=== PATIENT | female | born 1995 | race Caucasian/White ===

== ENCOUNTER → 2017-12-22 10:39 | Outpatient (CLI) | payer OTHER, MEDICAID, SELFPAY ==
--- NOTE | 2017-12-22 10:50 | XR_ITS ---
XR knee LT 3V HISTORY: Left knee pain ITS.REASON: TIM KNEE PAIN ORDERING PHYSICIAN: JUSTINE Madrigal PATIENT AGE: 22 years COMPARISON: None FINDINGS: No fracture or dislocation. No lytic or blastic change. Normal mineralization. No significant arthritic changes evident. Slight decrease in joint space medially. This however is without hypertrophic change or osteosclerosis. This also has a similar appearance on the right side. No other significant findings IMPRESSION: Slight decrease in joint space medially of questionable clinical significance otherwise negative left knee. This could be seen with very early osteoarthritis
--- NOTE | 2017-12-22 10:53 | XR_ITS ---
XR knee RT 3V HISTORY: ITS.REASON: TIM KNEE PAIN ORDERING PHYSICIAN: JUSTINE Madrigal PATIENT AGE: 22 years COMPARISON: None FINDINGS: No fracture or dislocation. No lytic or blastic change. Normal mineralization. No significant arthritic changes evident. Slight decrease in joint space medially. This however is without hypertrophic change or osteosclerosis. This also has a similar appearance on the left side. No other significant findings IMPRESSION: Slight decrease in joint space medially of questionable clinical significance otherwise negative left knee. This could be seen with very early osteoarthritis
== END ==
PROVIDERS: PCP Family Medicine; Visit Provider Physician Assistant
DX: M25.561 Pain in right knee (principal); M25.562 Pain in left knee
CPT/HCPCS: 73562

== ENCOUNTER → 2019-06-25 07:58 | Outpatient (CLI) | payer OTHER, SELFPAY ==
[2019-06-25 08:00] LABS: Adenovirus F 40/41, stool Not Detected (NotDetected); Astrovirus Not Detected (NotDetected); Campylobacter Not Detected (NotDetected); Cryptosporidium Not Detected (NotDetected); Cyclospora Cayetanesis Not Detected (NotDetected); Entamoeba histolytica Not Detected (NotDetected); Enteroaggregative E coli Not Detected (NotDetected); Enteropathogenic E coli Not Detected (NotDetected); Enterotoxigenic E coli Not Detected (NotDetected); Giardia lamblia Not Detected (NotDetected); Norovirus Not Detected (NotDetected); Plesimonas Shigalloides, PCR Not Detected (NotDetected); Rotavirus A Not Detected (NotDetected); Salmonella, PCR Not Detected (NotDetected); Sapovirus Not Detected (NotDetected); Shiga-like toxin E coli Not Detected (NotDetected); Shigella Enterovasive E coli Not Detected (NotDetected); Vibrio Cholerae Not Detected (NotDetected); Vibrio, PCR Not Detected (NotDetected); Yersinia Entercolitica, PCR Not Detected (NotDetected)
[2019-06-25 12:39] LABS: Clostridium Difficile A/B, PCR Detected (NotDetected)
== END ==
PROVIDERS: Visit Provider Nurse Practitioner
DX: R19.7 Diarrhea, unspecified (principal); A04.72 Enterocolitis due to Clostridium difficile, not specified as recurrent
CPT/HCPCS: 87507

== ENCOUNTER 2020-02-23 19:03 | Emergency (ER) | payer OTHER, SELFPAY ==
[2020-02-23 19:13] LABS: UTC Strep Screen (Rapid) Negative (Negative)
[2020-02-23 19:31] VITALS: BP 145/97; PULSE 88; RESP 18; TEMP 36.9; O2SAT 99; BMI 16.0
--- NOTE | 2020-02-23 19:38 | HMH.EDUTC ---
[facility] [place] Disposition Clinical Impression: Fever Qualifiers: Fever type: unspecified Qualified Code(s): R50.9 - Fever, unspecified Disposition: Home, Self-Care Condition on Discharge: Good Instructions: Preventing the Spread of Coronavirus Discharge Instructions Additional Instructions: Go home and self quarantine until the results of the COVID-19. Referrals: Nando Simmons MD [Primary Care Provider] - Forms: Work/School Release Time of Disposition: 19:43 Medical Decision Making - Medical Records Medical records reviewed: No: I reviewed the patient's medical records. - Munir Inquiry Pt receiving controlled substance: No Vital Signs: 02/23/20 19:31 02/23/20 19:41 Temperature 98.5 F 98.5 F Temperature Source Oral Pulse Rate 88 Pulse Rate [Right Brachial] 88 Respiratory Rate 18 18 Blood Pressure 145/97 H Blood Pressure [Right Arm] 145/97 H Blood Pressure Mean [Right Arm] 113 Blood Pressure Source [Right Arm] Automatic Cuff Blood Pressure Position [Right Arm] Sitting 02 Sat by Pulse Oximetry 99 Oxygen Delivery Method Room Air - Lab Data Lab results reviewed: Yes: I reviewed the patient's lab results. Lab Results 02/23/20 19:07: Strep Scn Rapid Clinic Negative Orders (Tests/Meds): ORDERS Category Date Time Status SARS-CoV-2, ESTRELLA ([place]) Stat Lab 02/23/20 19:25 Received Strep Screen Confirmation Stat Micro 02/23/20 19:07 Received [facility] [place] HPI - General Stated complaint: COVID test Time Seen by Provider: 02/23/20 19:35 Mode of Arrival: Ambulatory Source of Information: Patient Limitations: No Limitations Description of Symptoms (Recalled from Triage Doc. by RN): PATIENT C/O FEVER AND SORE THROAT HEENT Symptoms (Recalled from RN notes): Yes Resp Symptoms (Recalled from RN notes): No Skin Symptoms (Recalled from RN notes): No MS Symptoms (Recalled from RN notes): No Functional Status (Recalled from RN notes): WNL - History of Present Illness Provider Complaint: She had an elevated temp when it was checked as she entered the building to start her shift. She does admit to having some mild right sided sore throat, but she has had no additional symptoms. She denies any known exposure to COVID-19. 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 - Related Data Home Medications Medication Instructions Recorded Confirmed drospirenone 3 mg-ethinyl 1 tab PO DAILY 11/28/18 02/23/20 estradiol 0.03 mg tablet Previous Rx's Medication Instructions Recorded Azithromycin [Z-Stefan 250mg Tab*] 250 mg PO UD DOSE PK #6 tab 02/24/20 Allergies Allergy/AdvReac Type Severity Reaction Status Date / Time No Known Allergies Allergy Verified 10/02/19 11:01 - Worker's Comp Is this a Worker's Comp case?: No H History - Hepatitis A Screen Drug use history?: No High risk sexual behaviors?: No History of sexually transmitted infection?: No Currently employed?: No Childcare worker?: No Do you have indoor plumbing?: Yes Do you have electricity?: Yes Attestation statement:: This patient has been screened for Hepatitis A risk factors. I have reviewed the patient's past medical history: Yes Medical History: Reports:: Cancer Comment: Osteoarthritis Other Surgeries: Yes: Hernia Repair Fractures: Yes (left ankle) - Social History Smoking Status: Never smoker Alcohol Intake: current Alcohol Intake Frequency:: holidays/special occasions only Occupational Status: employed Family Hx:: Non-contributory ROS Obtained: Yes All systems reviewed & no additional complaints - Constitutional Constitutional: Denies chills, Reports fever(s), Denies poor appetite, Denies malaise - Eyes Eyes: Denies eye discharge - ENT Ears, Nose, Mouth, and Throat: Denies dizziness, Denies otalgia, Reports sore throat - Cardiovascular Cardiovascular: Denies chest pain - Respiratory Respiratory: No chest congestion, No cough, No dyspnea, No coughing up blood, No stridor, No wheezing - Gastroin
[2020-02-23 19:41] VITALS: BP 145/97; PULSE 88; RESP 18; TEMP 36.9; O2SAT 99
[2020-02-24 19:02] LABS: UTC Influenza A Antigen Negative (Negative); UTC Influenza B Antigen Negative (Negative)
[2020-02-25 17:03] LABS: Covid-19 Nasal PCR Sendout UK Not Detected
== END 2020-02-23 19:49 | disposition home or self-care (01) ==
PROVIDERS: Emergency Provider Nurse Practitioner Family; PCP Family Medicine
DX: R50.9 Fever, unspecified (principal); J02.9 Acute pharyngitis, unspecified
CPT/HCPCS: 87804; 87880; 99202; U0003

== ENCOUNTER 2020-07-01 09:54 | Emergency (ER) | payer OTHER, SELFPAY ==
[2020-07-01 10:02] VITALS: BP 135/83; PULSE 81; RESP 21; TEMP 36.6; O2SAT 98; BMI 16.4
--- NOTE | 2020-07-01 10:20 | HMH.EDUTC ---
[facility] [place] Disposition Clinical Impression: Contact dermatitis Qualifiers: Contact dermatitis type: allergic Contact dermatitis trigger: unspecified trigger Qualified Code(s): L23.9 - Allergic contact dermatitis, unspecified cause Disposition: Home, Self-Care Condition on Discharge: Good Instructions: Contact Dermatitis, DI for Contact Dermatitis Additional Instructions: Avoid contact with the offending substance (poison quentin). Don't start the oral steroids until tomorrow. Don't put the topical steroids (triamcinolone) on your face or your groin area. Follow up with your regular doctor. GO TO THE ER FOR ANY WORSENING SYMPTOMS OR CONCERNS Prescriptions: Triamcinolone Acetonide 1 applicatio TP TIDP PRN 7 Days #1 tube PRN Reason: Itching Transmission Status: Received by [id number] Referrals: Nando Simmons MD [Primary Care Provider] - Time of Disposition: 10:23 Medical Decision Making - Medical Records Medical records reviewed: No: I reviewed the patient's medical records. - Munir Inquiry Pt receiving controlled substance: No Vital Signs: 07/01/20 10:02 07/01/20 10:23 Temperature 97.9 F 97.9 F Temperature Source Oral Pulse Rate 81 Pulse Rate [Right Brachial] 81 Respiratory Rate 21 21 Blood Pressure 135/83 Blood Pressure [Right Arm] 135/83 Blood Pressure Mean [Right Arm] 100 Blood Pressure Source [Right Arm] Automatic Cuff Blood Pressure Position [Right Arm] Sitting 02 Sat by Pulse Oximetry 98 Oxygen Delivery Method Room Air Orders (Tests/Meds): ED MEDICATIONS Discontinued Medications Generic Name Dose Route Start Last Admin Trade Name Freq PRN Reason Stop Dose Admin Dexamethasone Sodium Phosphate 8 mg 07/01/20 10:08 07/01/20 10:11 Decadron 4mg/Ml 1ml Vial IM 07/01/20 10:09 8 mg ONCE ONE Administration [facility] [place] HPI - General Stated complaint: poison quentin Time Seen by Provider: 07/01/20 10:15 Mode of Arrival: Ambulatory Source of Information: Patient Limitations: No Limitations Description of Symptoms (Recalled from Triage Doc. by RN): PATIENT C/O POSSIBLE POISON QUENTIN ALL OVER BODY X 4-5 DAYS. HEENT Symptoms (Recalled from RN notes): No Resp Symptoms (Recalled from RN notes): No Skin Symptoms (Recalled from RN notes): Yes MS Symptoms (Recalled from RN notes): No Functional Status (Recalled from RN notes): WNL - History of Present Illness Provider Complaint: She states that she has a rash on her right lower leg. She thinks that her dog got in poison quentin and then rubbed up against her leg. Her symptoms began 2 days ago and seem to be getting worse. - Related Data Home Medications Medication Instructions Recorded Confirmed drospirenone 3 mg-ethinyl 1 tab PO DAILY 11/28/18 07/01/20 estradiol 0.03 mg tablet Previous Rx's Medication Instructions Recorded Triamcinolone Acetonide 1 applicatio TP TIDP PRN 7 Days #1 07/01/20 tube Allergies Allergy/AdvReac Type Severity Reaction Status Date / Time No Known Allergies Allergy Verified 10/02/19 11:01 - Worker's Comp Is this a Worker's Comp case?: No [facility] History - Hepatitis A Screen Drug use history?: No High risk sexual behaviors?: No History of sexually transmitted infection?: No Currently employed?: No Childcare worker?: No Do you have indoor plumbing?: Yes Do you have electricity?: Yes Attestation statement:: This patient has been screened for Hepatitis A risk factors. I have reviewed the patient's past medical history: Yes Medical History: Reports:: Cancer Comment: Osteoarthritis Other Surgeries: Yes: Hernia Repair Fractures: Yes (left ankle) - Social History Smoking Status: Never smoker Alcohol Intake: never Alcohol Intake Frequency:: holidays/special occasions only Occupational Status: employed Family Hx:: Non-contributory ROS Obtained: Yes All systems reviewed & no additional complaints - Constitutional Constitutional: Denies chills, Denies fever(
[2020-07-01 10:23] VITALS: BP 135/83; PULSE 81; RESP 21; TEMP 36.6; O2SAT 98
== END 2020-07-01 10:25 | disposition home or self-care (01) ==
PROVIDERS: Emergency Provider Nurse Practitioner Family; PCP Family Medicine
DX: L23.9 Allergic contact dermatitis, unspecified cause (principal)
CPT/HCPCS: 96372; 99201

== ENCOUNTER 2020-07-18 14:55 | Emergency (ER) | payer OTHER, SELFPAY ==
[2020-07-18 15:16] VITALS: BP 128/80; PULSE 75; RESP 18; TEMP 36.7; O2SAT 98; BMI 16.4
--- NOTE | 2020-07-18 15:32 | HMH.EDUTC ---
[facility] [place] Disposition Clinical Impression: Contact dermatitis Qualifiers: Contact dermatitis type: unspecified Contact dermatitis trigger: unspecified trigger Qualified Code(s): L25.9 - Unspecified contact dermatitis, unspecified cause Disposition: Home, Self-Care Condition on Discharge: Good Instructions: DI for Contact Dermatitis Additional Instructions: Avoid contact with the offending substance (poison leanne). Don't start the oral steroids until tomorrow. Don't put the topical steroids (triamcinolone) on your face or your groin. Follow up with your regular doctor. GO TO THE ER FOR ANY WORSENING SYMPTOMS OR CONCERNS Prescriptions: methylPREDNISolone [Medrol] 4 mg PO DIRECTED 6 Days #21 tab.ds.pk Transmission Status: Received by [id number] Referrals: Nando Simmons MD [Primary Care Provider] - Time of Disposition: 15:47 Medical Decision Making - Medical Records Medical records reviewed: No: I reviewed the patient's medical records. - Munir Inquiry Pt receiving controlled substance: No Vital Signs: 07/18/20 15:16 07/18/20 15:59 Temperature 98.0 F 98.0 F Temperature Source Oral Oral Pulse Rate 75 Pulse Rate [Radial] 75 Respiratory Rate 18 18 Blood Pressure 128/80 Blood Pressure [Right Arm] 128/80 Blood Pressure Mean [Right Arm] 96 Blood Pressure Source Automatic Cuff Blood Pressure Source [Right Arm] Automatic Cuff Blood Pressure Position Sitting Blood Pressure Position [Right Arm] Sitting 02 Sat by Pulse Oximetry 98 Oxygen Delivery Method Room Air Room Air Orders (Tests/Meds): ED MEDICATIONS Discontinued Medications Generic Name Dose Route Start Last Admin Trade Name Renate PRN Reason Stop Dose Admin Methylprednisolone Sodium Succinate 60 mg 07/18/20 15:34 07/18/20 15:38 Methylprednisolone Sod Succ 125mg Vial IM 07/18/20 15:35 60 mg ONCE ONE Administration [facility] [place] HPI - General Stated complaint: posion leanne Time Seen by Provider: 07/18/20 15:32 Mode of Arrival: Ambulatory Source of Information: Patient Limitations: No Limitations Description of Symptoms (Recalled from Triage Doc. by RN): rash to face and neck HEENT Symptoms (Recalled from RN notes): No Resp Symptoms (Recalled from RN notes): No Skin Symptoms (Recalled from RN notes): Yes MS Symptoms (Recalled from RN notes): No Functional Status (Recalled from RN notes): wnl - History of Present Illness Provider Complaint: She c/o having a rash on her face and neck. This began yesterday. She has a history of being very sensitive to poison leanne. - Related Data Home Medications Medication Instructions Recorded Confirmed drospirenone 3 mg-ethinyl 1 tab PO DAILY 11/28/18 07/01/20 estradiol 0.03 mg tablet Previous Rx's Medication Instructions Recorded Triamcinolone Acetonide 1 applicatio TP TIDP PRN 7 Days #1 07/01/20 tube methylPREDNISolone [Medrol] 4 mg PO DIRECTED 6 Days #21 07/18/20 tab.ds.pk Allergies Allergy/AdvReac Type Severity Reaction Status Date / Time No Known Allergies Allergy Verified 10/02/19 11:01 - Worker's Comp Is this a Worker's Comp case?: No [facility] History - Hepatitis A Screen Drug use history?: No High risk sexual behaviors?: No History of sexually transmitted infection?: No Currently employed?: No Childcare worker?: No Do you have indoor plumbing?: Yes Do you have electricity?: Yes Attestation statement:: This patient has been screened for Hepatitis A risk factors. I have reviewed the patient's past medical history: Yes Medical History: Reports:: Cancer Comment: Osteoarthritis Other Surgeries: Yes: Hernia Repair Fractures: Yes (left ankle) - Social History Smoking Status: Never smoker Alcohol Intake: never Alcohol Intake Frequency:: holidays/special occasions only Occupational Status: employed Housing: house Family Hx:: Non-contributory ROS Obtained: Yes All systems reviewed & no additional complaints - Constit
[2020-07-18 15:59] VITALS: BP 128/80; PULSE 75; RESP 18; TEMP 36.7; O2SAT 98
== END 2020-07-18 16:00 | disposition home or self-care (01) ==
PROVIDERS: Emergency Provider Nurse Practitioner Family; PCP Family Medicine
DX: L25.9 Unspecified contact dermatitis, unspecified cause (principal)
CPT/HCPCS: 96372; 99201

== ENCOUNTER 2021-08-17 20:45 | Emergency (ER) | payer BC, OTHER, SELFPAY ==
[2021-08-17] VITALS (12 sets, daily range): BP systolic 101–135; BP diastolic 73–91; PULSE 82–107; RESP 12–22; TEMP 36.7–37.2; O2SAT 92–98; BMI 16.4; BMI 16.9
--- NOTE | 2021-08-17 20:47 | XR_ITS ---
PROCEDURE INFORMATION: Exam: XR Right Wrist Exam date and time: 08/17/2021 8:47 PM Age: 26 years old Clinical indication: Injury or trauma; Blunt trauma (contusions or hematomas); Patient HX: Patient was shielded. Exam done portable due to trauma to right wrist due to falling over a dog. ; Additional info: Fall TECHNIQUE: Imaging protocol: XR Right wrist. Views: 3 or more views. COMPARISON: No relevant prior studies available. FINDINGS: Bones/joints: Comminuted fracture through the distal radial metaphysis. The distal radius is dorsally displaced relative to the proximal radius at the fracture site. There is approximately 1 shaft width of dorsal displacement and mild overlap at the fracture. Displaced fracture of the ulna styloid is also noted. Soft tissues: Considerable soft tissue swelling at the level of the wrist. IMPRESSION: Distal radius and ulna styloid fractures.
--- NOTE | 2021-08-17 20:50 | HMH.EDUPEXT ---
ED Disposition Clinical Impression: Fracture of wrist Qualifiers: Encounter type: initial encounter Fracture type: closed Laterality: right Qualified Code(s): S62.101A - Fracture of unspecified carpal bone, right wrist, initial encounter for closed fracture Disposition: Home, Self-Care Condition on Discharge: Fair Instructions: DI for Wrist Fracture Additional Instructions: Keep the splint in place. Use your arm sling as needed. Keep your affected limb elevated. You may take ibuprofen as needed. Follow-up with an orthopedist tomorrow. Dr. Wang said that he would be able to see you in the office. Please call his office tomorrow and tell them that you have a broken wrist that was reduced in the emergency department tonapril and Dr. Wang wanted to see you on Tuesday (tomorrow). Return to the emergency department if you feel worse in any way. Prescriptions: Hydrocod/Acet 5/325 mg [[place] 5/325mg tablet] 1 tab PO Q4HP PRN #10 tablet PRN Reason: Pain Transmission Status: Sent to [id number] Referrals: Nando Simmons MD [Primary Care Provider] - Evens Wang MD [Staff Physician] - (Distal Radius/Ulna fx, post reduction) Time of Disposition: 22:52 - Critical Care Critical Care Time: No Attestation: On 08/17/21, the high probability of a clinically significant, sudden or life threatening deterioration of the following system(s) required my full and direct attention, intervention and personal management. The time I documented below is in addition to time spent performing reported procedures but includes the following listed in this critical care notation. Medical Decision Making - Medical Records Medical records reviewed: Yes: I reviewed the patient's medical records. - Munir Inquiry Pt receiving controlled substance: Yes Munir was queried for this patient: Yes Risks and benefits of using a controlled substance: were discussed with pt by me Vital Signs: 08/17/21 20:46 08/17/21 22:02 08/17/21 22:05 Temperature 98.9 F Temperature Source Oral Pulse Rate [Apical] 100 H 82 Pulse Rate [Right Radial] 107 H Respiratory Rate 22 15 15 Blood Pressure [Right Arm] 135/91 H 120/83 101/76 L Blood Pressure Mean [Right Arm] 105 95 84 Blood Pressure Source [Right Arm] Automatic Cuff Automatic Cuff Automatic Cuff Blood Pressure Position [Right Arm] Supine Sitting Sitting 02 Sat by Pulse Oximetry 98 95 97 Oxygen Delivery Method Room Air Nasal Cannula Nasal Cannula Oxygen Flow Rate (LPM) 2 2 - Lab Data Lab Results 08/17/21 20:52: Serum HCG, Qual Negative 08/17/21 21:25: SARS-CoV-2 (PCR) Not detected, Influenza A Untype (PCR) Not detected, Influenza Type B (PCR) Not detected Orders (Tests/Meds): ED MEDICATIONS Generic Name Dose Route Start Last Admin Trade Name Freq PRN Reason Stop Dose Admin Propofol 30 mg 08/17/21 22:32 Propofol 10mg/Ml 20ml Vial IV 09/16/21 22:31 NEEDED PRN Sedation Discontinued Medications Generic Name Dose Route Start Last Admin Trade Name Freq PRN Reason Stop Dose Admin Hydrocodone Bitart/Acetaminophen 1 tab 08/17/21 22:26 Apap/Hydrocodone 325mg/7.5mg Tab PO 08/17/21 22:27 ONCE ONE Hydromorphone HCl 2 mg 08/17/21 21:16 08/17/21 21:17 Hydromorphone 2mg/Ml Syringe IV 08/17/21 21:17 1 mg ONCE ONE Administration Morphine Sulfate 4 mg 08/17/21 20:50 08/17/21 20:58 Morphine 4mg/Ml Syringe IV 08/17/21 20:51 4 mg ONCE ONE Administration Ondansetron HCl 4 mg 08/17/21 20:50 08/17/21 20:59 Ondansetron 4mg/2ml Vial IV 08/17/21 20:51 4 mg ONCE ONE Administration ORDERS Category Date Time Status Wrist XR right 2 views [XR wrist RT 2V] Stat Exams 08/17/21 22:15 Taken - Radiology Data #1 Image(s): Wrist Image Reviewed: Yes I reviewed the patient's radiology results, Yes I reviewed the patient's radiology image Preliminary Findings: Abnormal (Displaced, comminuted fracture of the dis
[2021-08-17 21:32] LABS: HCG Qualitative, Serum Negative (Negative)
[2021-08-17 21:43] LABS: Coronavirus 19, PCR Not Detected (NotDetected); Influenza A, PCR Not Detected (NotDetected); Influenza B, PCR Not Detected (NotDetected)
--- NOTE | 2021-08-17 22:02 | PC.NURSE ---
Addendum entered by Magan Gabriel RN 08/17/21 23:50: 2220- Reduction complete and Xray at bedside for post-reduction imaging Original Note: 2201- Procedure consent for conscious sedation explained and signed by pt's and placed on chart. Pt placed on cardiac cath rn and 2LNC applied w/ CO2 end-tidal cannula in place. Time out performed by MD and staff. MD states Mallampati score of class A. Ambu-bag mask at bedside. 2204- 30mg propofol IVP by MD 2206- 20mg propofol IVP by 2207- 20mg propofol IVP by 2209- 20mg propofol IVP by 2242- Pt back to baseline. A&Ox4 and answering all questions appropriately. 97% on RA. Pt to be discharged with w/ instructions to follow up with in the morning. Shoulder sling in place. OTC medication as needed for pain. Ice and elevate extremity.
--- NOTE | 2021-08-17 22:15 | XR_ITS ---
PROCEDURE INFORMATION: Exam: XR Right Wrist Exam date and time: 08/17/2021 10:15 PM Age: 26 years old Clinical indication: Injury or trauma; Fall; Fracture, traumatic injury; Closed fracture; Wrist; Right; Additional info: Post-reduction TECHNIQUE: Imaging protocol: XR Right wrist. Views: 1 or 2 views. COMPARISON: CR (WRIST, WRIST PA) 08/17/2021 9:02 PM FINDINGS: Tubes, catheters and devices: Overlying splinting material obscures finer detail of bone and soft tissue. Bones/joints: Redemonstration of ulnar styloid process fracture. Compared to prior study, there is decreased posterior angulation and displacement of the distal radial fracture. Soft tissues: Hematoma around the fractures. IMPRESSION: Overlying splinting material obscures finer detail of bone and soft tissue. Within the limitations of the study, the bone fragments appear in improved position compared to prior study.
== END 2021-08-17 23:10 | disposition home or self-care (01) ==
PROVIDERS: Emergency Provider Emergency Medicine; PCP Family Medicine
DX: S52.501A Unspecified fracture of the lower end of right radius, initial encounter for closed fracture (principal); S52.611A Displaced fracture of right ulna styloid process, initial encounter for closed fracture; W01.0XXA Fall on same level from slipping, tripping and stumbling without subsequent striking against object, initial encounter; Y92.019 Unspecified place in single-family (private) house as the place of occurrence of the external cause
CPT/HCPCS: 29125; 25605; 73100; 73110; 84703; 96374; 96375; 99152; 99153; 99285; C9803; J2405; U0003; U0005

== ENCOUNTER → 2021-08-18 12:16 | Outpatient (CLI) | payer BC, OTHER, SELFPAY ==
--- NOTE | 2021-08-18 12:21 | CT_ITS ---
PROCEDURE: CT WRIST RT WO CON CLINICAL HISTORY: RT wrist fracture COMPARISON: CR XR WRIST RT MIN 3V from 08/17/2021 TECHNIQUE: Axial images obtained with sagittal and coronal reformats. All CT scans at the facility use one or more dose reduction, viz: automated exposure control, ma/kV adjustment per patient size (including targeted exams where dose is matched to indication, i.e. head), or iterative reconstruction technique. FINDINGS: There is comminuted distal radial fracture transverse in nature 1.5 cm proximal to the articular surface of the distal radius. There is dorsal displacement of the distal fracture fragment by 7 mm and dorsal angulation of the distal fracture fragment by 23 degrees. There is a small displaced fragment posteriorly displaced dorsally by approximately 4 mm. No intra-articular extension apparent. Nondisplaced fracture involves the base of the ulnar styloid process. A cast is in place. IMPRESSION: Displaced and dorsally angulated comminuted distal radial fracture as described above without intra-articular involvement with associated ulnar styloid process fracture Dictated by: Mikel Drew MD 08/18/2021 14:03 Mikel Drew MD in [place] 08/18/2021 14:03
[2021-08-18 13:24] LABS: Basophils # 0.1 K/mm3 (0-0.2); Basophils % 0.9 % (0.1-2.0); Eosinophils # 0.2 K/mm3 (0.0-0.4); Eosinophils % 2.6 % (0.1-12.0); Hematocrit 38.7 % (37.0-47.0); Hemoglobin 12.7 g/dL (12.2-16.2); Lymphocytes # 2.5 K/mm3 (0.7-4.5); Lymphocytes % 26.7 % (10-50); Mean Corpuscular HGB Conc 32.8 g/dL (31.8-35.4); Mean Corpuscular Hemoglobin 30.4 pg (27.0-31.2); Mean Corpuscular Volume 92.9 fl (81-99); Mean Platelet Volume 8.1 fl (7.4-10.4); Monocytes # 0.8 K/mm3 (0.1-1.0); Monocytes % 8.2 % (1.7-9.3); Neutrophils # 5.7 K/mm3 (1.8-7.8); Neutrophils % 61.5 % (37.0-80.0); Platelet Count 241 K/mm3 (142-424); Red Blood Count 4.16 M/mm3 (4.20-5.40); Red Cell Distribution Width 12.9 % (11.5-17.5); White Blood Count 9.3 K/mm3 (4.8-10.8)
[2021-08-18 13:53] LABS: Chloride 106 mmol/L (98-107)
[2021-08-18 13:54] LABS: Potassium 3.8 mmoL/L (3.5-5.1); Sodium 140 mmol/L (136-145)
[2021-08-18 13:56] LABS: Alanine Aminotransferase 25 U/L (12-78); Aspartate Amino Transferase 32 U/L (14-36); Blood Urea Nitrogen 10 mg/dl (7-17); Estimated Glomerular Filt Rate 119 ml/min (>60); GFR (African American) 144 ML/MIN (>60)
[2021-08-18 13:57] LABS: Albumin Level 3.6 g/dl (3.5-5.0); Albumin/Globulin Ratio 1.4 (1.1-1.8); Alkaline Phosphatase 76 U/L (38-126); Anion Gap 11.8 mEq/L (5-15); Bilirubin,Total 0.4 mg/dl (0.2-1.3); Calcium 8.6 mg/dl (8.4-10.2); Carbon Dioxide 26 mmol/L (22.0-30.0); Globulin 2.6 g/dL (1.3-3.2); Glucose 83 mg/dl (74-100); Total Protein,Serum 6.2 g/dl (6.3-8.2)
== END ==
PROVIDERS: PCP Family Medicine; Visit Provider Orthopaedic Surgery
DX: Z01.818 Encounter for other preprocedural examination (principal); M25.531 Pain in right wrist
CPT/HCPCS: 36415; 73200; 80053; 85025

== ENCOUNTER 2021-08-20 10:23 | Day surgery (SDC) | payer BC, OTHER, SELFPAY ==
[2021-08-19 10:46] VITALS: BMI 16.4
[2021-08-20 10:47] VITALS: BP 120/78; PULSE 58; RESP 18; TEMP 36.6; O2SAT 98
--- NOTE | 2021-08-20 11:13 | HMH.ANESCL ---
[facility] Anesthesia Checklist - Patient Identification Patient Identification: Arm Band - Structural Data Admitted From: Home Planned Operative Procedure/s: ORIF Consent for Planned Operative Procedure(s) Verified: Yes - NPO Status Verified Time NPO: 00:00 - Additional verifications Anesthesia Reactions: No Hx Blood Transfusions: No Blood Transfusion Reaction: No - Airway Assessment C-Spine Mobility Assessed: Yes TMJ Mobility Assessed: Yes Dentition: Good Dentition - Neurological Assessment Level of Consciousness: Awake Hx Seizures: No Numbness or tingling in extremities: Yes (Complains of numbness in operative arm.) - Anesthesia Plan Anesthesia Risk discussed: Yes Anesthesia Plan: Verified ASA Class: I Anesthesia Type: MAC w/Block [facility] History I have reviewed the patient's past medical history: Yes Medical History: Reports:: Anxiety Denies:: Cancer, Diabetes Mellitus Type 1, Diabetes Mellitus Type 2, Internal Pacemaker, MRSA, Seizures *Have you ever received a pneumonia vaccine?: No *Have you received a flu vaccine this season?: Yes Other Medical History: Reports: Arthritis. Denies: Blood Transfusion Reaction Anesthesia experience/problems:: None Other Surgeries: Yes: Hernia Repair. No: Pacemaker Amputation: No Fractures: Yes (left ankle) - *Social History Last grade of school completed: High school graduate Smoking Status: Never smoker Alcohol Intake: current Alcohol Intake Frequency:: holidays/special occasions only Substance Use Type: denies use *Occupational Status:: employed Housing: house *Travel in the last 8 weeks: None Family Hx:: Non-contributory
[2021-08-20 13:09] VITALS: TEMP 38
--- NOTE | 2021-08-20 13:37 | XR_ITS ---
PROCEDURE: XR WRIST RT 2V CLINICAL INDICATION: ORIF RIGHT WRIST IN OR COMPARISON: CR XR WRIST RT MIN 3V from 08/17/2021 FINDINGS: Fluoroscopy time: 1.02 minutes. Multiple images are submitted with the C-arm during open reduction internal fixation of the distal radial fracture with volar bone plate placed with multiple cortical screws with good alignment in the AP and lateral position on the final images. Ulnar styloid process fracture noted nondisplaced. IMPRESSION: Good alignment status post ORIF distal radial fracture Dictated by: Mikel Drew MD 08/20/2021 17:14 Mikel Drew MD in [facility] 08/20/2021 17:14
[2021-08-20 14:12] VITALS: BP 85/45; PULSE 50; RESP 16; TEMP 36.7; O2SAT 92
[2021-08-20 14:27] VITALS: BP 100/61; PULSE 56; RESP 16; O2SAT 97
[2021-08-20 14:42] VITALS: BP 93/70; PULSE 66; RESP 18; O2SAT 95
[2021-08-20 15:05] VITALS: BP 120/67; PULSE 60; RESP 16; TEMP 36.7; O2SAT 96
--- NOTE | 2021-08-20 22:56 | HMH.OPNOTE ---
Date of procedure: 08/20/21 Pre-op Diagnosis:: 1. Closed, comminuted, displaced distal radius fracture, right 2. Closed, displaced fracture ulnar styloid process, right 3. Median nerve contusion, right Post-op Diagnosis:: Same Procedure performed:: 1.Open reduction and internal fixation right distal radius with volar locking plate. 2. Exploration of the median nerve in the distal forearm, right Surgeon:: Evens Wang MD Advertising Account Executive(s):: Nicci Pugh PA-C [employer] COUNSELOR:: Natanael De La Cruz Anesthesia: MAC (Supraclavicular nerve block), regional Estimated blood loss (mL): 5 Clinical Note:: Patient is a 26-year-old dominant female who sustained a closed displaced fracture of the right distal radius when she tripped over her dog and fell at home 3 days ago. Evaluation including x-rays and CT scan of the right wrist showed a closed, comminuted and displaced extra-articular fracture of the right distal radius. There is also a displaced ulnar shaft fracture. Clinically patient had signs and symptoms of median nerve contusion with paresthesias over the radial 3 and half digits. Following a detailed discussion with the patient and her about the management options including both nonsurgical and surgical, patient elected to proceed with surgical remediation. The operative side was marked and initialed by me. Patient understood the risks, agreed to proceed with surgery, signed the consent form and no guarantees or assurances were given or implied. Please refer to my office note for full details. Operative findings:: Displaced, comminuted and unstable fracture of the right distal radius and minimally displaced ulnar styloid fracture as noted on the preoperative x-rays. Bone quality is good. Exploration of the median nerve over the distal forearm did not show any obvious nerve injury. The nerve appeared essentially normal with small amount of hematoma in the surrounding muscles. Operative note:: After appropriate workup, the patient is brought to the hospital for surgery. On the day of surgery, I met the patient in the preoperative area. A physical examination was performed. Following the injury, patient had paresthesias over the median nerve distribution. Today she reports that these have completely resolved and she had normal sensation over all the fingers. Therefore, I have told her that it is unlikely there is any significant nerve injury but I would look at the nerve in the distal forearm. However, I would not be performing a formal carpal tunnel release which, I think, is unnecessary at this stage. I have again discussed the details of the procedure, risks and benefits, alternatives and the expected outcomes. The complications discussed include but are not limited to infection, bleeding, injury to nerves, tendons and blood vessels, incisional scar (cosmesis), DVT/PE, malunion, nonunion/delayed union, loss of position, re-fracture, wrist/finger stiffness, CRPS (complex regional pain syndrome- pain, sensory and temperature changes, swelling and stiffness), painful/prominent hardware, loss of fixation/hardware failure, incomplete relief of pain, incomplete return of function, posttraumatic arthritis and likely need for further surgery in future and also the risks of anesthesia including heart attack, stroke, and . I have also explained how additional surgery may be required if there are any complications or the fracture fails to heal. We have also discussed the postoperative pain management, recovery and rehabilitation, immobilization required, the likely need for physical therapy, the possibility of stiffness, chronic pain and we've also discussed the option of nonsurgical treatment. Patient expressed a full understanding and wished to proceed with surgery as planned. The operative site/side was marked and initialed by me. Patient understood the risks, agreed to proceed with surgery and no guarantees or assurances were given or implied. Patient was bro
[2022-07-15 10:54] LABS: POC Glucose,Bedside 77 (70-110)
== END 2021-08-20 15:05 | disposition home or self-care (01) ==
LOC: OR 10:24
PROVIDERS: PCP Family Medicine; Visit Provider Orthopaedic Surgery
PROC: (CPT 25607; principal; 2021-08-20 12:00)
DX: S52.551A Other extraarticular fracture of lower end of right radius, initial encounter for closed fracture (principal); S64.11XA Injury of median nerve at wrist and hand level of right arm, initial encounter; S52.611A Displaced fracture of right ulna styloid process, initial encounter for closed fracture; W01.0XXA Fall on same level from slipping, tripping and stumbling without subsequent striking against object, initial encounter; Y92.019 Unspecified place in single-family (private) house as the place of occurrence of the external cause
CPT/HCPCS: 25607; 64721; 73100; 76000; 82962; 96374; C1713; C1769; C1776; J0670; J2405; J2704

== ENCOUNTER → 2021-09-02 11:05 | Outpatient (CLI) | payer BC, OTHER, SELFPAY ==
--- NOTE | 2021-09-02 11:13 | XR_ITS ---
PROCEDURE: XR WRIST RT MIN 3V CLINICAL INDICATION: sp ORIF RT wrist, sx 08/20/21 COMPARISON: CR XR WRIST RT 2V from 08/17/2021 CR XR WRIST RT MIN 3V from 08/17/2021 FINDINGS: Status post ORIF distal radial fracture with volar bone plate with good alignment of the fracture fragments. avulsion of the ulnar styloid is noted There is a cast now place. Other findings:None. IMPRESSION: Status post ORIF distal radial fracture with good alignment Dictated by: Mikel Drew MD 09/02/2021 18:53 Mikel Drew MD in [place] 09/02/2021 18:53
== END ==
PROVIDERS: PCP Family Medicine; Visit Provider Orthopaedic Surgery
DX: Z09 Encounter for follow-up examination after completed treatment for conditions other than malignant neoplasm (principal); S52.551D Other extraarticular fracture of lower end of right radius, subsequent encounter for closed fracture with routine healing; S52.611D Displaced fracture of right ulna styloid process, subsequent encounter for closed fracture with routine healing; G56.11 Other lesions of median nerve, right upper limb
CPT/HCPCS: 73110

== ENCOUNTER → 2021-09-16 09:49 | Outpatient (CLI) | payer BC, SELFPAY ==
--- NOTE | 2021-09-16 09:58 | XR_ITS ---
PROCEDURE: XR WRIST RT MIN 3V CLINICAL INDICATION: sp ORIF rt wrist, sx 08/20/21 COMPARISON: CR XR WRIST RT 2V from 08/17/2021 CR XR WRIST RT MIN 3V from 08/17/[address] WRIST RT WO CON from 08/18/2021 CR XR WRIST RT MIN 3V from 09/02/2021 FINDINGS: The cast has been removed. There is a volar bone plate along the distal radius with good alignment of the radial fracture fragments. Ulnar styloid process fracture once again noted unchanged. The joint spaces are well-preserved. No significant degenerative/arthritic changes. No erosive changes evident. Other findings:None. IMPRESSION: Good alignment status post ORIF distal radial fracture Dictated by: Mikel Drew MD 09/16/2021 16:51 Mikel Drew MD in [place] 09/16/2021 16:51
== END ==
PROVIDERS: PCP Family Medicine; Visit Provider Orthopaedic Surgery
DX: S52.551D Other extraarticular fracture of lower end of right radius, subsequent encounter for closed fracture with routine healing (principal); S52.611D Displaced fracture of right ulna styloid process, subsequent encounter for closed fracture with routine healing; G56.11 Other lesions of median nerve, right upper limb; Z09 Encounter for follow-up examination after completed treatment for conditions other than malignant neoplasm
CPT/HCPCS: 73110

== ENCOUNTER 2021-09-16 10:45 | Outpatient (RCR) | payer BC, SELFPAY | END 2021-09-16 11:28 | disposition home or self-care (01) | LOC: OT 10:45 | PROVIDERS: Visit Provider Orthopaedic Surgery | DX: S52.551D Other extraarticular fracture of lower end of right radius, subsequent encounter for closed fracture with routine healing (principal); S52.611D Displaced fracture of right ulna styloid process, subsequent encounter for closed fracture with routine healing; G56.11 Other lesions of median nerve, right upper limb | CPT/HCPCS: 97763 ==

== ENCOUNTER → 2021-10-22 08:40 | Outpatient (CLI) | payer BC, OTHER, SELFPAY ==
--- NOTE | 2021-10-22 08:46 | XR_ITS ---
FINAL REPORT CLINICAL HISTORY: sp ORIF rt wrist, sx 08/20/21 FINDINGS: RIGHT WRIST FINDINGS: Three views show a side plate and screws securing the distal radius. There are mild hypertrophic changes at the basilar joint. There is a well-corticated ossific density adjacent to the ulna probably due to sequela of old trauma. IMPRESSION: Postsurgical changes from ORIF. Reviewed, Interpreted and Dictated by Noel Marques MD Transcribed by Denice Vences Authenticated by Noel Marques MD on 10/22/2021 11:56:01 AM [facility]
== END ==
PROVIDERS: PCP Family Medicine; Visit Provider Orthopaedic Surgery
DX: M25.531 Pain in right wrist (principal); Z09 Encounter for follow-up examination after completed treatment for conditions other than malignant neoplasm
CPT/HCPCS: 73110

== ENCOUNTER → 2021-10-30 08:19 | Outpatient (CLI) | payer BC, SELFPAY | PROVIDERS: PCP Family Medicine; Visit Provider Nurse Practitioner | DX: Z20.822 Contact with and (suspected) exposure to COVID-19 (principal) | CPT/HCPCS: C9803; U0003; U0005 ==

== ENCOUNTER 2021-11-08 09:50 | Emergency (ER) | payer BC, OTHER, SELFPAY ==
[2021-11-08 10:37] VITALS: BP 112/93; PULSE 83; RESP 16; TEMP 36.8; O2SAT 98; BMI 16.4
[2021-11-08 11:21] LABS: UTC Influenza A Antigen Negative (Negative); UTC Influenza B Antigen Negative (Negative)
--- NOTE | 2021-11-08 11:38 | HMH.EDUTC ---
[facility] [place] Clinical Impression: Viral syndrome, Exposure to COVID-19 virus Disposition: Home, Self-Care Condition on Discharge: Good Instructions: DI for COVID-19 (Suspected or Confirmed ), Preventing the Spread of Coronavirus Discharge Instructions Additional Instructions: *Monitor Temp, Over the counter Motrin or Tylenol as directed/as needed Tylenol every 4 hours and Motrin every 6 hours (as long as your family doctor has told you that you can take it) for fever or pain. and straight to ER if unable to lower temp less than 101.0 after medication given *Warm salt water gargles may help to soothe the throat *Throat Lozenges *Warm fluids like tea with honey may help to soothe the throat *Sleep elevated *Humidifier/Vaporizer Follow up IMMEDIATELY for new or worsening symptoms or no Noticeable improvement over the next 48-72 hours. 911 for difficulty breathing or swallowing You were tested for today for COVID19 your test result should be back in the next 24-48 hours, you may check your results on the [facility] [employer] [facility] if you have trouble logging on you may call [employer] support for assistance You was given a handout with instructions for Self Quarantine and Self isolation for while you wait on test results and what to do if they are positive If you are positive the Health Dept will be contacting you also Make sure to take your Vitamins Vit. C Vit D and Zinc if you can take them Prescriptions: Brompheniramine/Pseudoephed/Dm [Bromfed Dm Cough Syrup] 5 - 10 ml PO Q46H PRN #200 ml PRN Reason: Cough Transmission Status: Pending to [id number] Referrals: Nando Simmons MD [Primary Care Provider] - As needed Forms: Work/School Release Time of Disposition: 11:43 Medical Decision Making - Munir Inquiry Pt receiving controlled substance: No Munir was queried for this patient: No Vital Signs: 11/08/21 10:37 Temperature 98.3 F Temperature Source Oral Pulse Rate [Right] 83 Respiratory Rate 16 Blood Pressure [Right Arm] 112/93 H Blood Pressure Mean [Right Arm] 99 Blood Pressure Source [Right Arm] Automatic Cuff Blood Pressure Position [Right Arm] Sitting 02 Sat by Pulse Oximetry 98 Oxygen Delivery Method Room Air - Lab Data Lab results reviewed: Yes: I reviewed the patient's lab results. Lab Results 11/08/21 10:42: Influenza Type A Ag Negative, Influenza Type B Ag Negative Orders (Tests/Meds): ORDERS Category Date Time Status Covid-19 Nasal PCR ([facility]) Routine Lab 11/08/21 10:42 Ordered Medical Decision Narrative: Denies chance of last period one week ago [facility] [place] HPI - General Stated complaint: covid symptoms Time Seen by Provider: 11/08/21 11:38 Mode of Arrival: Ambulatory Source of Information: Patient Limitations: No Limitations Description of Symptoms (Recalled from Triage Doc. by RN): Symptoms started last Tuesday fever, headache, chills and now has loss of taste and smell HEENT Symptoms (Recalled from RN notes): No Resp Symptoms (Recalled from RN notes): No Skin Symptoms (Recalled from RN notes): No MS Symptoms (Recalled from RN notes): No Functional Status (Recalled from RN notes): na - History of Present Illness Provider Complaint: Patient states that recently had COVID States that on Tuesday she started feeling bad with fever, chills, body aches and loss of taste and smell State that today she was still feeling bad so she came in to get checked - Related Data Home Medications Medication Instructions Recorded Confirmed loratadine 10 mg tablet 10 mg PO DAILY 08/18/21 10/22/21 sertraline 50 mg tablet 50 mg PO DAILY 08/18/21 10/22/21 Ibuprofen [Ibuprofen 200MG Capsule] 200 mg PO Q6HP PRN 08/19/21 10/22/21 Multivit-Minerals/Folic Acid 200 mcg PO HS 08/19/21 10/22/21 [Multivitamin Gummies] Previous Rx's Medication Instructions Recorded Brompheniramine/Pseudoephed/Dm 5 - 10 ml PO Q46H PRN #200 ml 11/08/21 [Bromfed Dm Cough Syrup]
[2021-11-08 11:44] VITALS: BP 112/93; PULSE 83; RESP 16; TEMP 36.8
== END 2021-11-08 11:54 | disposition home or self-care (01) ==
PROVIDERS: Emergency Provider Nurse Practitioner; PCP Family Medicine
DX: U07.1 COVID-19 (principal); B34.9 Viral infection, unspecified; F41.9 Anxiety disorder, unspecified
CPT/HCPCS: 87804; 99202; C9803; G0463; U0003; U0005

== ENCOUNTER → 2021-12-02 09:07 | Outpatient (CLI) | payer BC, OTHER, SELFPAY ==
--- NOTE | 2021-12-02 09:11 | XR_ITS ---
FINAL REPORT CLINICAL HISTORY: sp ORIF rt wrist F/U COMPARISON: FINDINGS: RIGHT WRIST Four views demonstrate no acute fracture or dislocation. There are postoperative changes in the distal radius with a screw plate and multiple screws. There is a chronic fracture of the ulnar styloid process. The alignment appears normal. IMPRESSION: Postsurgical changes without acute bony abnormality. Reviewed, Interpreted and Dictated by Timothy Perez III, MD Transcribed by Floridalma Coronel Authenticated by Timothy Perez III, MD on 12/02/2021 10:39:11 AM [facility]
== END ==
PROVIDERS: PCP Family Medicine; Visit Provider Orthopaedic Surgery
DX: Z09 Encounter for follow-up examination after completed treatment for conditions other than malignant neoplasm (principal)
CPT/HCPCS: 73110

== ENCOUNTER → 2022-03-03 08:23 | Outpatient (CLI) | payer BC, OTHER, SELFPAY ==
--- NOTE | 2022-03-03 08:26 | XR_ITS ---
FINAL REPORT CLINICAL HISTORY: ORIF rt wrist sx 08/20/2021 COMPARISON: December 02, 2021 FINDINGS: RIGHT WRIST Three views were obtained. There are postoperative changes from ORIF of the distal radius. Screw plate and multiple screws are present. There is a chronic fracture of the ulnar styloid process. The visualized joint spaces are normally aligned. The soft tissues are unremarkable. IMPRESSION: Postoperative changes as above. Overall appearance is stable. Reviewed, Interpreted and Dictated by Timothy Perez III, MD Transcribed by Sravanthi Rossi Authenticated by Timothy Perez III, MD on 03/03/2022 10:16:[address] [facility]
== END ==
PROVIDERS: PCP Family Medicine; Visit Provider Orthopaedic Surgery
DX: S52.501D Unspecified fracture of the lower end of right radius, subsequent encounter for closed fracture with routine healing (principal)
CPT/HCPCS: 73110

== ENCOUNTER → 2022-05-11 07:55 | Outpatient (POV) | payer BC, SELFPAY | PROVIDERS: Visit Provider Dermatology | DX: Z00.00 Encounter for general adult medical examination without abnormal findings (principal) ==

== ENCOUNTER 2022-08-18 09:07 | Emergency (ER) | payer BC, OTHER, SELFPAY ==
[2022-08-18 10:49] VITALS: BP 136/86; PULSE 63; RESP 18; TEMP 36.8; O2SAT 99; BMI 16.4
--- NOTE | 2022-08-18 10:49 | EXP.UTC ---
Discharge Plan Disposition Patient Disposition: Home, Self-Care Condition: Good Prescriptions Prescriptions: New cefdinir 300 mg capsule 300 mg PO BID Qty: 20 0RF No Action sertraline [Zoloft] 50 mg tablet 50 mg PO DAILY loratadine [Claritin] 10 mg tablet 10 mg PO DAILY omeprazole 20 mg capsule,delayed release(DR/EC) 20 mg PO DAILY multivit with min-folic acid 200 MCG tablet,chewable 200 mcg PO HS Referrals Follow up/Referrals: Nando Simmons MD [Primary Care Provider] - See instructions Activity Restrictions/Add. Instructions Additional Instructions/Restrictions: *Monitor Temp, Over the counter Motrin or Tylenol as directed/as needed Tylenol every 4 hours and Motrin every 6 hours (as long as your family doctor has told you that you can take it) for fever or pain. and straight to ER if unable to lower temp less than 101.0 after medication given *Warm salt water gargles may help to soothe the throat *Throat Lozenges? *Warm fluids like tea with honey may help to soothe the throat? *Sleep elevated *Humidifier/Vaporizer Your throat swab was sent for culture. Those results are typically sent to your primary care. Be sure to follow up in 2-3 days with your family doctor/primary care physician if no improvement so they can review those result and treat if necessary. If you don?t have a primary care doctor, I recommend you get one but in the mean time, you will have to return to a walk in clinic Follow up IMMEDIATELY for new or worsening symptoms or no Noticeable improvement over the next 48-72 hours. 911 for difficulty breathing or swallowing You were tested for today for COVID19 your test result should be back in the next 24-48 hours, you may check your results on the [facility] [facility] Clinical Impressions Clinical Impression: URI (upper respiratory infection) Qualifiers: URI type: unspecified URI Qualified Code(s): J06.9 - Acute upper respiratory infection, unspecified Stand Alone Forms Stand Alone Forms: Work/School Release Instructions Patient Instructions: Strep Throat, DI for Strep Throat Discharge ED Provider: Brandie Marte [facility] [place] General Stated complaint: Strep/flu test, Sore throat, dry cough, sinus shanell Time Seen by Provider: 08/18/22 10:50 History of Present Illness Provider Complaint: Patient states that she feels like she may have strep throat or flu States that she got sick a couple days ago with sore throat, nasal congestion and dry cough State that today her throat feels scratchy and hurts when she swallows so she came in to get tested Related Data Home Medications Medication Instructions Recorded Confirmed loratadine 10 mg tablet (Claritin) 10 mg PO DAILY ALLERGIES 08/18/21 03/03/22 sertraline 50 mg tablet (Zoloft) 50 mg PO DAILY Depression 08/18/21 03/03/22 multivitamin with minerals-folic 200 mcg PO HS Supplement 08/19/21 03/03/22 acid 200 mcg chewable tablet omeprazole 20 mg capsule,delayed 20 mg PO DAILY 12/07/21 03/03/22 release Previous Rx's Medication Instructions Recorded cefdinir 300 mg capsule 300 mg PO BID #20 caps 08/18/22 Allergies Allergy/AdvReac Type Severity Reaction Status Date / Time No Known Allergies Allergy Verified 03/03/22 08:54 PFSH PFS Social History Smoking Status: Never smoker alcohol intake: current substance use type: denies use current occupational status: employed Travel in the last 8 weeks: None housing: house caffeine: No ROS Obtained: Yes All systems reviewed & no additional complaints except as documented and Yes Systems reviewed as appropriate & no additional complaints except as documented Constitutional Constitutional: Reports system reviewed and no additional complaints, except as documented, Reports as per HPI, Reports fever(s) and Reports headache(s) ENT Ears, Nose, Mouth, and Throat: Reports system reviewed and no additional complaint
[2022-08-18 11:08] VITALS: BP 130/68; PULSE 62; RESP 18; TEMP 36.6; O2SAT 99
[2022-08-18 20:47] LABS: UTC Influenza A Antigen Negative (Negative); UTC Influenza B Antigen Negative (Negative); UTC Strep Screen (Rapid) Positive (Negative)
== END 2022-08-18 11:09 | disposition home or self-care (01) ==
PROVIDERS: Emergency Provider Nurse Practitioner; PCP Family Medicine
DX: J02.0 Streptococcal pharyngitis (principal); B95.0 Streptococcus, group A, as the cause of diseases classified elsewhere; M19.90 Unspecified osteoarthritis, unspecified site; R51.9 Headache, unspecified; F32.A Depression, unspecified; Z20.822 Contact with and (suspected) exposure to COVID-19; Z79.899 Other long term (current) drug therapy; Z82.49 Family history of ischemic heart disease and other diseases of the circulatory system; Z83.438 Family history of other disorder of lipoprotein metabolism and other lipidemia; Z80.9 Family history of malignant neoplasm, unspecified
CPT/HCPCS: 87804; 87880; 99213; C9803; G0463; U0003; U0005

== ENCOUNTER → 2022-09-06 15:24 | Outpatient (CLI) | payer BC, OTHER, SELFPAY ==
--- NOTE | 2022-09-06 15:25 | US_ITS ---
FINAL REPORT CLINICAL HISTORY: irregular periods FINDINGS: Transvaginal sonographic images of the pelvis were obtained. The uterus measures 8.3 x 4.5 x 3.8 cm. The endometrium measures 7 mm, which is within normal limits. No uterine mass is identified. The right ovary measures 4.8 cm in length and left ovary measures 3.8 cm in length. Normal blood flow seen to the ovaries. Small left ovarian follicles are present. There is a 2.2 cm right ovarian cyst. There is no evidence of free fluid. IMPRESSION: 2.2 cm right ovarian cyst. Reviewed, Interpreted and Dictated by Timothy Perez III, MD Transcribed by Donnie Persaud Authenticated and [facility]
== END ==
PROVIDERS: PCP Family Medicine; Visit Provider Obstetrics & Gynecology
DX: N92.6 Irregular menstruation, unspecified (principal)
CPT/HCPCS: 76830

== ENCOUNTER → 2022-09-06 16:38 | Outpatient (CLI) | payer BC, OTHER, SELFPAY ==
[2022-09-06 16:47] LABS: MANUAL DIFFERENTIAL MANUAL DIFFERENTIAL (MANUAL DIFF)
[2022-09-06 17:21] LABS: Chloride 100 mmol/L (98-107); Sodium 139 mmol/L (136-145)
[2022-09-06 17:22] LABS: Potassium 3.5 mmoL/L (3.5-5.1)
[2022-09-06 17:24] LABS: Alanine Aminotransferase 22 U/L (12-78); Alkaline Phosphatase 80 U/L (38-126); Aspartate Amino Transferase 31 U/L (14-36); Bilirubin,Total 0.4 mg/dl (0.2-1.3); Blood Urea Nitrogen 13 mg/dl (7-17); Estimated Glomerular Filt Rate 118 ml/min (>60); GFR (African American) 143 ML/MIN (>60)
[2022-09-06 17:25] LABS: Albumin Level 4.6 g/dl (3.5-5.0); Albumin/Globulin Ratio 1.6 (1.1-1.8); Anion Gap 13.5 mEq/L (5-15); Basophils # 0.1 K/mm3 (0-0.2); Basophils % 0.8 % (0.1-2.0); Calcium 9.5 mg/dl (8.4-10.2); Carbon Dioxide 29 mmol/L (22.0-30.0); Eosinophils # 0.2 K/mm3 (0.0-0.4); Eosinophils % 2.5 % (0.1-12.0); Globulin 2.9 g/dL (1.3-3.2); Glucose 85 mg/dl (74-100); Glucose,Fasting 85 mg/dl (74-100); Hemoglobin 13.6 g/dL (12.2-16.2); Lymphocytes # 2.8 K/mm3 (0.7-4.5); Lymphocytes % 34.6 % (10-50); Mean Corpuscular HGB Conc 32.3 g/dL (31.8-35.4); Mean Corpuscular Hemoglobin 30.5 pg (27.0-31.2); Mean Corpuscular Volume 94.5 fl (81-99); Mean Platelet Volume 7.5 fl (7.4-10.4); Monocytes # 0.5 K/mm3 (0.1-1.0); Neutrophils # 4.5 K/mm3 (1.8-7.8); Neutrophils % 56.1 % (37.0-80.0); Platelet Count 295 K/mm3 (142-424); Red Blood Count 4.44 M/mm3 (4.20-5.40); Red Cell Distribution Width 13.1 % (11.5-17.5); Total Protein,Serum 7.5 g/dl (6.3-8.2)
[2022-09-06 17:56] LABS: Thyroid Stimulating Hormone 1.23 uIU/mL (0.465-4.68)
[2022-09-06 19:26] LABS: Eosinophils % 2 % (0-3); Lymphocytes % 34 % (10-50); Monocytes % 4 % (2-9); Neutrophils % 60 % (42-76); Platelet Estimate Normal; RBC Morphology Normal; Total Cells Counted 100
[2022-09-06 20:50] LABS: Hemoglobin A1C 5.1 % (4.0-6.0)
[2022-09-08 08:15] LABS: Estradiol 29.3 pg/mL (.); FSH 2.3 mIU/mL (.); LH 1.9 mIU/mL (.); Testosterone,Total 7 ng/dL (13-71)
[2022-09-08 10:35] LABS: Insulin Level Total 10.2 uIU/mL (2.6-24.9)
[2022-09-19 21:48] LABS: Anti Mullerian Hormone (AMH) 4.07
== END ==
PROVIDERS: PCP Obstetrics & Gynecology; Visit Provider Obstetrics & Gynecology
DX: N92.6 Irregular menstruation, unspecified (principal)
CPT/HCPCS: 36415; 80053; 82397; 82670; 82947; 83001; 83002; 83036; 83525; 84403; 84443; 85007; 85014; 85018; 85048; 85049

== ENCOUNTER → 2022-10-20 10:15 | Outpatient (CLI) | payer BC, OTHER, SELFPAY ==
[2022-10-20 12:41] LABS: Adenovirus,PCR Not Detected (NotDetected); Bordetella Pertussis Not Detected (NotDetected); Chlamydophila Pneumoniae, PCR Not Detected (NotDetected); Coronavirus 19, PCR Not Detected (NotDetected); Coronavirus 229E Not Detected (NotDetected); Coronavirus NL63 Not Detected (NotDetected); Coronavirus OC43 Not Detected (NotDetected); Coronovirus HKU1,PCR Not Detected (NotDetected); Human Metapneumovirus Not Detected (NotDetected); Influenza A, PCR Not Detected (NotDetected); Influenza AH1, 2009 Not Detected (NotDetected); Influenza AH1, PCR Not Detected (NotDetected); Influenza AH3,PCR Not Detected (NotDetected); Influenza B, PCR Not Detected (NotDetected); Mycoplasma Pneumoniae, PCR Not Detected (NotDetected); Parainfluenza 1, PCR Not Detected (NotDetected); Parainfluenza 2, PCR Not Detected (NotDetected); Parainfluenza 3, PCR Not Detected (NotDetected); Parainfluenza 4, PCR Not Detected (NotDetected); Respiratory Syncytial Virus Not Detected (NotDetected); Rhinovirus/Enterovirus Not Detected (NotDetected)
== END ==
PROVIDERS: Visit Provider Nurse Practitioner Family
DX: J06.9 Acute upper respiratory infection, unspecified (principal); Z20.822 Contact with and (suspected) exposure to COVID-19; R51.9 Headache, unspecified; R50.9 Fever, unspecified; R05.9 Cough, unspecified; R11.0 Nausea
CPT/HCPCS: 87581; 87632; 87798; C9803; U0003; U0005

== ENCOUNTER → 2022-12-22 12:37 | Outpatient (CLI) | payer BC, OTHER, SELFPAY ==
[2022-12-22 13:10] LABS: Basophils # 0.1 K/mm3 (0-0.2); Basophils % 1.1 % (0.1-2.0); Eosinophils # 0.2 K/mm3 (0.0-0.4); Eosinophils % 1.9 % (0.1-12.0); Hematocrit 42.5 % (37.0-47.0); Hemoglobin 14.1 g/dL (12.2-16.2); Lymphocytes # 2.7 K/mm3 (0.7-4.5); Lymphocytes % 34.6 % (10-50); Mean Corpuscular HGB Conc 33.1 g/dL (31.8-35.4); Mean Corpuscular Hemoglobin 30.6 pg (27.0-31.2); Mean Corpuscular Volume 92.3 fl (81-99); Mean Platelet Volume 7.9 fl (7.4-10.4); Monocytes # 0.5 K/mm3 (0.1-1.0); Monocytes % 6.9 % (1.7-9.3); Neutrophils # 4.4 K/mm3 (1.8-7.8); Neutrophils % 55.5 % (37.0-80.0); Platelet Count 277 K/mm3 (142-424); Red Cell Distribution Width 12.9 % (11.5-17.5); White Blood Count 7.9 K/mm3 (4.8-10.8)
[2022-12-22 13:53] LABS: Chloride 104 mmol/L (98-107); Potassium 4.2 mmoL/L (3.5-5.1); Sodium 137 mmol/L (136-145)
[2022-12-22 13:56] LABS: Anion Gap 14.2 mEq/L (5-15); Blood Urea Nitrogen 12 mg/dl (7-17); Carbon Dioxide 23 mmol/L (22.0-30.0); Estimated Glomerular Filt Rate 118 ml/min (>60); GFR (African American) 143 ML/MIN (>60)
[2022-12-22 13:57] LABS: Calcium 8.7 mg/dl (8.4-10.2); Glucose 85 mg/dl (74-100)
== END ==
PROVIDERS: PCP Nurse Practitioner Family; Visit Provider Nurse Practitioner Family
DX: E16.2 Hypoglycemia, unspecified (principal); R55 Syncope and collapse
CPT/HCPCS: 80048; 83036; 85025

== ENCOUNTER → 2023-04-12 09:26 | Outpatient (CLI) | payer BC, OTHER, SELFPAY ==
[2023-04-12 11:06] LABS: HCG,Quantitative 33 mIU/ml (0-5.42)
[2023-04-13 10:45] LABS: Progesterone 0.5 ng/mL (.)
== END ==
PROVIDERS: PCP Physician Assistant; Visit Provider Obstetrics & Gynecology
DX: N92.6 Irregular menstruation, unspecified (principal); Z32.00 Encounter for pregnancy test, result unknown
CPT/HCPCS: 36415; 84144; 84702

== ENCOUNTER → 2023-04-14 12:03 | Outpatient (CLI) | payer BC, OTHER, SELFPAY ==
[2023-04-14 13:44] LABS: HCG,Quantitative 14 mIU/ml (0-5.42)
== END ==
PROVIDERS: PCP Physician Assistant; Visit Provider Obstetrics & Gynecology
DX: N92.6 Irregular menstruation, unspecified (principal); Z32.00 Encounter for pregnancy test, result unknown
CPT/HCPCS: 36415; 84702

== ENCOUNTER → 2023-09-22 11:15 | Outpatient (CLI) | payer BC, OTHER, SELFPAY ==
[2023-09-22 12:33] LABS: HCG,Quantitative 765 mIU/ml (0-5.42)
[2023-09-23 08:18] LABS: Progesterone 14.8 ng/mL (.)
== END ==
PROVIDERS: PCP Physician Assistant; Visit Provider Obstetrics & Gynecology
DX: N92.6 Irregular menstruation, unspecified (principal)
CPT/HCPCS: 36415; 84144; 84702

== ENCOUNTER → 2023-10-14 09:10 | Outpatient (CLI) | payer BC, OTHER, SELFPAY ==
[2023-10-14 12:02] LABS: HCG,Quantitative 27891 mIU/ml (0-5.42)
== END ==
PROVIDERS: PCP Physician Assistant; Visit Provider Obstetrics & Gynecology
DX: Z34.91 Encounter for supervision of normal pregnancy, unspecified, first trimester (principal); Z3A.11 11 weeks gestation of pregnancy
CPT/HCPCS: 84702; 87086

== ENCOUNTER 2023-10-18 09:51 | Outpatient (CLI) | payer BC, OTHER, SELFPAY ==
--- NOTE | 2023-10-18 09:54 | US_ITS ---
PROCEDURE: US OB <= 14 WEEKS FETUS CLINICAL INDICATION: for dates COMPARISON: No exams were available for comparison FINDINGS: Transvaginal sonographic images of the pelvis were obtained. From her last menstrual period she is 12weeks 3days. An intrauterine gestational sac is present but a fetus is not seen today. This correlates to a gestational age of 6weeks 2days. heart tones are not seen today. Yolk sac is not noted. The right ovary is seen and appears normal. A 1.9 cm by 2.0 6 cm x 1.3 cm follicle is seen adjacent to the right ovary. This could represent a tubal cyst. A small hyperechoic area is seen at the edge of the follicle. The left ovary is seen and appears normal. There is no fluid in the cul-de-sac. IMPRESSION: 1. Gestational sac seen within the uterine cavity but no heart rate activity is seen. A yolk sac is not present. 2. The left ovary is seen and appears normal. 3. The right ovary has a 2 cm cystic area with a small hyperechoic area within the sac. This could represent a small follicle or possibly a tubal cyst. An ectopic is not ruled out but less likely. 4. No fluid in the cul-de-sac. 5. Suggest serial beta HCGs and repeat ultrasound in 1 week. Dictated by: Juancarlos Acevedo MD 10/18/2023 13:53 Juancarlos Acevedo MD in [place] 10/18/2023 13:53
[2023-10-18 12:08] LABS: HCG,Quantitative 31668 mIU/ml (0-5.42)
== END 2023-10-18 23:59 ==
LOC: RAD 09:52
PROVIDERS: PCP Physician Assistant; Visit Provider Obstetrics & Gynecology
DX: Z34.91 Encounter for supervision of normal pregnancy, unspecified, first trimester (principal); Z3A.12 12 weeks gestation of pregnancy
CPT/HCPCS: 36415; 76801; 84702

== ENCOUNTER 2023-10-27 09:39 | Outpatient (CLI) | payer BC, OTHER, SELFPAY ==
--- NOTE | 2023-10-27 09:40 | US_ITS ---
PROCEDURE: US OB <= 14 WEEKS FETUS CLINICAL INDICATION: 1 week follow up/dates COMPARISON: No exams were available for comparison FINDINGS: Transvaginal sonographic images of the pelvis were obtained. From her last menstrual period she is 13weeks 5days. An intrauterine gestational sac is present but no pole is seen. There are some internal echoes within the gestational sac. The gestational sac correlates to a gestational age of 6weeks 6days. heart tones are not present today. A yolk sac is not seen. The right ovary is seen and appears normal. There is a follicle adjacent to the right ovary measuring 1.5 cm x 1.7 cm x 1.9 cm. The left ovary is seen and appears normal. There is no fluid in the cul-de-sac. IMPRESSION: 1. Nonviable with a gestational sac that measures 6 weeks 6 days. 2. There is no fetus seen within the gestational sac. Likely missed . 3. Both ovaries are seen and appear normal. 4. No fluid in the cul-de-sac. Dictated by: Juancarlos Acevedo MD 10/27/2023 11:47 Juancarlos Acevedo MD in [place] 10/27/2023 11:47
[2023-10-27 11:37] LABS: HCG,Quantitative 22711 mIU/ml (0-5.42)
== END 2023-10-27 23:59 ==
LOC: RAD 09:40
PROVIDERS: PCP Physician Assistant; Visit Provider Obstetrics & Gynecology
DX: Z32.01 Encounter for pregnancy test, result positive (principal)
CPT/HCPCS: 36415; 76801; 84702; 87086

== ENCOUNTER 2023-11-02 13:33 | Emergency (ER) | payer BC, OTHER, SELFPAY ==
[2023-11-02 13:34] VITALS: BP 113/68; PULSE 70; RESP 18; TEMP 36.6; O2SAT 99; BMI 16.9
--- NOTE | 2023-11-02 14:03 | HMH.EDGENADL ---
Discharge Plan Disposition Patient Disposition: Home, Self-Care Chief Complaint: Vaginal Bleeding Prescriptions Prescriptions: No Action sertraline [Zoloft] 50 mg tablet 50 mg PO DAILY loratadine [Claritin] 10 mg tablet 10 mg PO DAILY omeprazole 20 mg capsule,delayed release(DR/EC) 20 mg PO DAILY Classic 28 mg iron- 800 mcg tablet 1 tab PO DAILY progesterone micronized [Prometrium] 200 mg capsule 200 mg vaginal QHS 30 Days Qty: 30 2RF Referrals Follow up/Referrals: Jade Arce PA [Primary Care Provider] - See instructions Activity Restrictions/Add. Instructions Additional Instructions/Restrictions: At this time it was felt you are safe to be discharged home. If new or worsening symptoms please do not hesitate to return the emergency department. Please follow-up with Dr. Courtney tomorrow or Tuesday at your earliest convenience. For pain please take Tylenol and ibuprofen every 6 hours as needed. Is important that you follow-up with Dr. Courtney to continue to trend your blood work. Clinical Impressions Clinical Impression: Miscarriage Discharge ED Provider: Sarabjit Hall General Adult HPI General Chief complaint: Vaginal Bleeding Stated complaint: admonial pain Time Seen by Provider: 11/02/23 13:45 History of Present Illness HPI narrative: Patient is a 28-year-old female currently undergoing expectant management for nonviable who presents emergency department for evaluation of vaginal bleeding. History is obtained by patient and per chart review. In recent clinic note on 10-27-2023 ultrasound demonstrated nonviable with a gestational sac that measures 6 weeks and 6 days. After shared decision-making patient elected to undergo expectant management at that time. Patient has had vaginal bleeding that has become severe over the last 24 hours using a pad approximately every 3 to 5 minutes since this morning. Patient has some crampy lower abdominal pain, not severe and has taken some ibuprofen. She contacted her OB who directed her here for continued evaluation. Related Data Home Medications Medication Instructions Recorded Confirmed loratadine 10 mg tablet (Claritin) 10 mg PO DAILY ALLERGIES 08/18/21 10/27/23 sertraline 50 mg tablet (Zoloft) 50 mg PO DAILY Depression 08/18/21 10/27/23 omeprazole 20 mg capsule,delayed 20 mg PO DAILY 12/07/21 10/27/23 release vits no.126-ferrous fum 1 tab PO DAILY 10/14/23 10/27/23 28 mg iron-folic acid 800 mcg tablet (Classic ) Previous Rx's Medication Instructions Recorded progesterone micronized 200 mg 200 mg vaginal QHS 30 days #30 caps 10/19/23 capsule (Prometrium) Allergies Allergy/AdvReac Type Severity Reaction Status Date / Time No Known Allergies Allergy Verified 10/27/23 15:07 [facility] Disclaimer: The information contained in this section may have been updated after the patient was seen, as this information can be updated by other users. 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 housing: house marital status: number of children: 0 pets and animals: Yes caffeine: No ROS Obtained: Yes Systems reviewed as appropriate & no additional complaints except as documented Physical Exam General General appearance: alert and in no apparent distress Head Head exam: atraumatic and normocephalic Eye Eye exam: Present PERRL and EOMI ENT ENT exam: Present mucous membranes moist Neck Neck exam: Present normal inspection Chest Chest inspection: Present normal inspection and symmetric chest wall rise Respiratory Respiratory exam: Absent respiratory distress Cardiovascular Cardiovascular exam: Present regular rate and normal rhythm Abdominal Exam Abdominal exam: Present soft; Absent tenderness Extremities Exam Extremities exam: Present normal inspection Neurological Exam Neurological exam: Present alert Psychiatric Psychiatric exam: Present normal affect Skin Skin exam: Present warm and dry Medical Decision Making Munir Inquiry Pt receiving controlled substance: No Vital Signs: 11/02/23 13:34 Temperature 97.9 F Temperature Source Oral Pulse Rate [Left Radial] 70 Respiratory Rate 18 Blood Pressure [Right Arm] 113/68 Blood Pressure Mean [Right Arm] 83 02 Sat by Pulse Oximetry 99 Oxygen Delivery Method Room Air Lab Data Lab Results 11/02/23 13:47: WBC 8.1, RBC 4.24, Hgb 13.5, Hct 39.9, MCV 94.0, MCH 31.7 H, MCHC 33.8, RDW 13.1, Plt Count 192, MPV 7.3 L, Neut % (Auto) 66.0, Lymph % (Auto) 25.0, [place] % (Auto) 6.1, Eos % (Auto) 2.1, Baso % (Auto) 0.8, Neut # (Auto) 5.3, Lymph # (Auto) 2.0, [place] # (Auto) 0.5, Eos # (Auto) 0.2, Baso # (Auto) 0.1, Sodium 137, Potassium 3.8, Chloride 103, Carbon Dioxide 28, Anion Gap 9.8, BUN 14, Creatinine 0.70, Estimated Creat Clear 91, Estimated GFR 98, Est GFR ( Amer) 119, Glucose 81, Calcium 8.7, Total Bilirubin 0.8, AST 40 H, ALT 37, Alkaline Phosphatase 55, Total Protein 7.2, Albumin 4.2, Globulin 3.0, Albumin/Globulin Ratio 1.4, HCG, Quant [id number] H 11/02/23 14:12: Urine Color Yellow, Urine Appearance Sl cloudy, Urine pH 6.0, Ur Specific [place] 1.015, Urine Protein Trace, Urine Glucose (UA) Negative, Urine Ketones Negative, Urine Blood 3+, Urine Nitrate Negative, Urine Bilirubin Negative, Urine Urobilinogen 0.2, Ur Leukocyte Esterase Trace, Urine RBC Tntc, Urine WBC Occasional, Ur Squamous Epith Cells Occasional, Urine Bacteria None 11/02/23 14:25: Blood Type O Positive 11/02/23 13:47 11/02/23 13:47 Orders (Tests/Meds): ORDERS Category Date Time Status Type and Screen Stat BBK 11/02/23 14:25 Results CBC w/Auto Diff [Complete Blood Count Auto Diff] Stat Lab 11/02/23 13:47 Completed CMP [Comprehensive Metabolic Panel] Stat Lab 11/02/23 13:47 Completed HCG,Quantitative Stat Lab 11/02/23 13:47 Completed UA [Urinalysis and Microscopic] Stat Lab 11/02/23 14:12 Completed Medical Decision Narrative: In summary patient is a 28-year-old female with past medical history described above who presents emergency department for evaluation of vaginal bleeding. Patient is hemodynamically stable upon arrival, no peritonitis on abdominal exam, heart rate 95. Based off of history and current physical status I suspect patient is having a spontaneous . Differential includes other causes of abnormal uterine bleeding. Workup will be conducted with hematologic labs, quantitative hCG. Patient undergo physical exam the case will be discussed with OB on-call. Workup reviewed by me, hematologic labs are nonactionable. Patient has downtrending hCG from prior, urinalysis interpreted by me and not consistent with infection. Blood type is O+ therefore RhoGAM not indicated. Speculum exam conducted with curling machine operator at bedside, patient has no active hemorrhaging from her introitus, had significant discomfort on exam and given no significant hemorrhaging examination of the cervix and posterior vaginal vault will be deferred. Patient has no tachycardia to suggest clinically significant hemorrhage. The case was discussed with Dr. Courtney who agrees that patient is appropriate for expedited outpatient management at this time patient will follow-up in clinic tomorrow or Tuesday at her convenience. Patient was given return precautions. Critical Care Critical Care Time Critical Care Time: No
[2023-11-02 14:12] LABS: Basophils # 0.1 K/mm3 (0-0.2); Basophils % 0.8 % (0.1-2.0); Eosinophils # 0.2 K/mm3 (0.0-0.4); Eosinophils % 2.1 % (0.1-12.0); Hematocrit 39.9 % (37.0-47.0); Hemoglobin 13.5 g/dL (12.2-16.2); Mean Corpuscular HGB Conc 33.8 g/dL (31.8-35.4); Mean Corpuscular Hemoglobin 31.7 pg (27.0-31.2); Mean Platelet Volume 7.3 fl (7.4-10.4); Monocytes # 0.5 K/mm3 (0.1-1.0); Monocytes % 6.1 % (1.7-9.3); Neutrophils # 5.3 K/mm3 (1.8-7.8); Platelet Count 192 K/mm3 (142-424); Red Blood Count 4.24 M/mm3 (4.20-5.40); Red Cell Distribution Width 13.1 % (11.5-17.5); White Blood Count 8.1 K/mm3 (4.8-10.8)
[2023-11-02 14:13] LABS: Chloride 103 mmol/L (98-107)
[2023-11-02 14:14] LABS: Potassium 3.8 mmoL/L (3.5-5.1); Sodium 137 mmol/L (136-145)
[2023-11-02 14:16] LABS: Alanine Aminotransferase 37 U/L (12-78); Alkaline Phosphatase 55 U/L (38-126); Anion Gap 9.8 mEq/L (5-15); Aspartate Amino Transferase 40 U/L (14-36); Bilirubin,Total 0.8 mg/dl (0.2-1.3); Blood Urea Nitrogen 14 mg/dl (7-17); Carbon Dioxide 28 mmol/L (22.0-30.0); Creatinine Clearance Estimated 91 mL/min (50-200); Estimated Glomerular Filt Rate 98 ml/min (>60); GFR (African American) 119 ML/MIN (>60)
[2023-11-02 14:16] LABS: Microscopic, Urine URINE MICROSCOPIC (MICROSCOPIC)
[2023-11-02 14:17] LABS: Albumin Level 4.2 g/dl (3.5-5.0); Albumin/Globulin Ratio 1.4 (1.1-1.8); Calcium 8.7 mg/dl (8.4-10.2); Glucose 81 mg/dl (74-100); Total Protein,Serum 7.2 g/dl (6.3-8.2)
[2023-11-02 14:28] LABS: Appearance,Urine SL CLOUDY (Clear); Bilirubin,Urine Negative (Negative); Blood, Urine 3+ (Negative); Color,Urine YELLOW (Yellow); Glucose,Urine (UA) Negative (Negative); Ketones,Urine Negative (Negative); Leukocyte Esterase,Urine TRACE (Negative); Nitrate,Urine Negative (Negative); Protein,Urine TRACE (Negative); Specific Gravity, Urine 1.015 (1.005-1.030); Urobilinogen,Urine 0.2 EU/dl (0.2)
[2023-11-02 14:34] LABS: HCG,Quantitative 10046 mIU/ml (0-5.42)
[2023-11-02 14:48] LABS: RBC,Urine TNTC #/hpf (0-3); Squamous Epithelial Cell,Urine Occasional #/hpf (0-5); WBC,Urine Occasional #/hpf (0-3)
--- NOTE | 2023-11-02 14:53 | PC.NURSE ---
called Dr Sherwin Hall and [facility] is speaking with her at this time
[2023-11-02 15:34] VITALS: BP 104/68; PULSE 75; RESP 16; TEMP 36.7
== END 2023-11-02 15:38 | disposition home or self-care (01) ==
PROVIDERS: Emergency Provider Emergency Medicine; PCP Physician Assistant
DX: O03.9 Complete or unspecified spontaneous abortion without complication (principal); R10.30 Lower abdominal pain, unspecified; N96 Recurrent pregnancy loss
CPT/HCPCS: 36415; 80053; 81001; 84702; 85025; 86850; 99285

== ENCOUNTER 2023-11-11 10:00 | Outpatient (CLI) | payer BC, OTHER, SELFPAY ==
[2023-11-11 11:44] LABS: HCG,Quantitative 2320 mIU/ml (0-5.42)
== END 2023-11-11 23:59 ==
LOC: LAB 10:01
PROVIDERS: PCP Physician Assistant; Visit Provider Obstetrics & Gynecology
DX: O03.9 Complete or unspecified spontaneous abortion without complication (principal)
CPT/HCPCS: 36415; 84702

== ENCOUNTER 2023-11-12 11:39 | Observation (INO) | payer BC, OTHER, SELFPAY ==
[2023-11-12] VITALS (12 sets, daily range): BP systolic 93–118; BP diastolic 46–81; PULSE 63–92; RESP 12–19; TEMP 36.3–36.8; O2SAT 99–100; BMI 16.9
--- NOTE | 2023-11-12 11:30 | PC.NURSE ---
1100- Dr. campbell called with orders to direct admit pt for a D&C, Orders given for a CBC, Type & Crossmatch 2 units of PRBs to hold, Beta Quant HCg level. 1 Liter of LR IV Bolus. Call surgery team once Pt arrives
[2023-11-12 12:07] LABS: POC Glucose,Bedside 91 (70-110)
--- NOTE | 2023-11-12 12:17 | EXP.HP ---
History of Present Illness *Admission Date: 11/12/23 *Reason for visit:: heavy bleeding, spontaneous *History of present illness: Mrs Celeste Costa is a 28 yo . On Tuesday morning, 11/01/23, she got out of the shower and started bleeding. She passed some large clots in the toilet and bleeding and cramping resolved. She felt good throughout the day on Tuesday. She woke up Tuesday at 0300 in a puddle of blood. She states she couldn't leave her bathroom from [phone] because she was soaking a pad every 3-5 minutes. She admits she never experienced lightheadedness/dizziness, shortness of breath or chest pain. She went to the ED 11/02/23. Bleeding had started to slow when she got to the ED. Vital signs stable. Hgb 13.5, Beta hcg quant 10,046 from 22,711. Bleeding persisted over the past week and a half. She admits to having to change her pad about twice per day. She was feeling tired but otherwise okay. However, this morning she woke up and passed a large clot and then began bleeding heavy again. She is soaking through an adult diaper in about 20 minutes. She is feeling lightheaded and dizzy now. No chest pain or shortness breath. Beta hcg quant 11/11/23 was 2,320 down from 10,046.. [facility] Disclaimer: The information contained in this section may have been updated after the patient was seen, as this information can be updated by other users. 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 housing: house marital status: number of children: 0 pets and animals: Yes caffeine: No Review of Systems Review of Systems Review of systems:: pertinent systems reviewed and negative unless documented below Constitutional Constitutional: Reports fatigue and Reports lethargy ENT Ears, Nose, Mouth, and Throat: Reports vertigo *Genitourinary Genitourinary: Reports abnormal vaginal bleeding and Reports pelvic pain (cramping) *Neurologic Neurologic: Reports vertigo and Reports other (lightheaded) Endocrine Endocrine: Reports fatigue Meds Home Medications and Allergies Home Medications Medication Instructions Recorded Confirmed Type sertraline 50 mg tablet (Zoloft) 50 mg PO DAILY Depression 08/18/21 10/27/23 History omeprazole 20 mg capsule,delayed 20 mg PO DAILY 12/07/21 10/27/23 History release vits no.126-ferrous fum 1 tab PO DAILY 10/14/23 10/27/23 History 28 mg iron-folic acid 800 mcg tablet (Classic ) loratadine 10 mg tablet (Claritin) 10 mg PO DAILY PRN ALLERGIES 11/03/23 11/03/23 History New Prescriptions to Start Prescriptions: Allergies Allergy/AdvReac Type Severity Reaction Status Date / Time No Known Allergies Allergy Verified 11/03/23 10:26 Exam Data for Last 24 hours Vital signs and Labs for Last 24 Hours: Laboratory Results - last 24 hr 11/12/23 11:41: POC Glucose 91 11/12/23 11:57: Crossmatch (AHG) See Detail I & O for Last 24 hours: Intake & Output 11/09/23 11/10/23 11/11/23 11/12/23 23:59 23:59 23:59 23:59 Weight 108 lb Constitutional Constitutional: no acute distress and cooperative *Routine HEENT Exam Head: Present normocephalic and atraumatic Eye: Absent conjunctivae pink ENT: Present mucous membranes moist *Routine Neck Exam Neck: Present full ROM *Routine Respiratory Exam Respiratory: Present CTA bilaterally and normal respiratory effort *Routine Cardiovascular Exam Cardiovascular: Present RRR *Routine Abdominal Exam Abdominal: Present soft; Absent tenderness or distended *Routine Rectal Exam Rectal:: deferred *Routine Genitalia Exam Genitalia:: deferred *Routine Extremities Exam Extremities: Present full ROM; Absent edema or calf tenderness *Routine Neurological Exam Neurological: Present alert, moving all extremities and normal speech Routine Psychiatric Exam Psychiatric: Present normal affect and cooperative Assessment and Plan *Assessment and plan (1) Incomplete : Status: Acute Category: Medical Code(s): O03.4 - Incomplete spontaneous without complication (2) Hemorrhage: Status: Acute Category: Medical Code(s): R58 - Hemorrhage, not elsewhere classified (3) History of recurrent miscarriages: Problem Comment: x 2 Status: Acute Category: Medical Code(s): N96 - Recurrent loss (4) Rh(D) positive: Status: Acute Category: Medical Code(s): Z67.90 - Unspecified blood type, Rh positive Plan Admit to L&D for hemorrhage with incomoplete spontaneous To OR for suction D&C Doxycycline 200 mg PO prior to surgery Discussed risks, benefits, alternatives, expectations and possible complications of surgery. All questions addressed and answered. She voiced understanding of risks and possible complications. Consent form signed ABO RH: O positive
[2023-11-12 12:28] LABS: Basophils # 0.1 K/mm3 (0-0.2); Basophils % 0.6 % (0.1-2.0); Eosinophils # 0.2 K/mm3 (0.0-0.4); Eosinophils % 2.5 % (0.1-12.0); Hematocrit 40.6 % (37.0-47.0); Hemoglobin 13.3 g/dL (12.2-16.2); Lymphocytes # 2.7 K/mm3 (0.7-4.5); Lymphocytes % 30.6 % (10-50); Mean Corpuscular HGB Conc 32.8 g/dL (31.8-35.4); Mean Corpuscular Hemoglobin 30.9 pg (27.0-31.2); Mean Corpuscular Volume 94.1 fl (81-99); Mean Platelet Volume 7.5 fl (7.4-10.4); Monocytes # 0.5 K/mm3 (0.1-1.0); Neutrophils # 5.3 K/mm3 (1.8-7.8); Neutrophils % 60.1 % (37.0-80.0); Platelet Count 276 K/mm3 (142-424); Red Blood Count 4.32 M/mm3 (4.20-5.40); Red Cell Distribution Width 12.9 % (11.5-17.5); White Blood Count 8.8 K/mm3 (4.8-10.8)
[2023-11-12] MEDS: LACTATED RINGERS 1000ML 1,000 ML 999 ML IV (12:30)
[2023-11-12 12:38] LABS: HCG,Quantitative 1868 mIU/ml (0-5.42)
[2023-11-12] MEDS: DOXYCYCLINE HYCL 100 MG TABLET 200 MG PO (12:38)
--- NOTE | 2023-11-12 13:36 | P.PNANES_ITS ---
[facility] Disclaimer: The information contained in this section may have been updated after the patient was seen, as this information can be updated by other users. 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 housing: house marital status: number of children: 0 pets and animals: Yes caffeine: No [facility] Anesthesia Checklist Patient Identification Patient Identification: Verbal (Name & ) Structural Data Admitted From: Inpatient Planned Operative Procedure/s: d/c Consent for Planned Operative Procedure(s) Verified: Yes Additional verifications Anesthesia Reactions: No Hx Blood Transfusions: No Blood Transfusion Reaction: No Airway Assessment Mallampati Score:: Class II C-Spine Mobility Assessed: Yes TMJ Mobility Assessed: Yes Dentition: Good Dentition Neurological Assessment Level of Consciousness: Awake, Alert and Appropriate Anesthesia Plan Anesthesia Risk discussed: Yes Anesthesia Plan: Verified ASA Class: I Anesthesia Type: General
--- NOTE | 2023-11-12 13:38 | P.OP_ITS ---
Date of procedure: 11/12/23 Pre-op Diagnosis:: 1. Incomplete spontaneous 2. Hemorrhage 3. ABO RH: O positive Post-op Diagnosis:: 1. Incomplete spontaneous 2. Hemorrhage 3. ABO RH: O positive Procedure performed:: Suction D&C Surgeon:: Monica Courtney DO Racing Mechanic(s):: N/a VISUAL MERCHANDISING COORDINATOR:: Jamil Grajeda Anesthesia: GETA Estimated blood loss (mL): 100 Clinical Note:: Mrs Celeste Costa is a 28 yo . On Tuesday morning, 11/01/23, she got out of the shower and started bleeding. She passed some large clots in the toilet and bleeding and cramping resolved. She felt good throughout the day on Tuesday. She woke up Tuesday at 0300 in a puddle of blood. She states she couldn't leave her bathroom from [phone] because she was soaking a pad every 3-5 minutes. She admits she never experienced lightheadedness/dizziness, shortness of breath or chest pain. She went to the ED 11/02/23. Bleeding had started to slow when she got to the ED. Vital signs stable. Hgb 13.5, Beta hcg quant 10,046 from 22,711. Bleeding persisted over the past week and a half. She admits to having to change her pad about twice per day. She was feeling tired but otherwise okay. However, this morning she woke up and passed a large clot and then began bleeding heavy again. She is soaking through an adult diaper in about 20 minutes. She is feeling lightheaded and dizzy now. No chest pain or shortness breath. Beta hcg quant 11/11/23 was 2,320 down from 10,046. Operative findings:: 1. Uterus midposition, approximately 6 week size, normal shape. No adnexal greg s palpated 2. Products of conception protruding out of external cervical os Operative note:: Risks, benefits and alternatives were discussed with the patient. Risks include but are not limited to bleeding, infection, uterine perforation and VTE. Patient voiced understanding and agreed to proceed. She received Doxycycline 200 mg PO preoperatively. She was wheeled back to the operating room and placed under general anesthesia without difficulty. She was placed in dorsal lithotomy position and prepped and draped in the normal sterile fashion. A bimanual exam was performed. A weighted Auvard was placed in the vaginal vault. Ringed forcep was placed on anterior lip of the cervix. Uterus sounded to 8. Cervix was dilated with products of conception protruding through external os. A 7 mm curved [place] suction curettage was advanced into the uterine cavity without difficulty and was used to suction contents of the uterus. Following removal of the products of conception, a medium sized sharp curette was advanced into the uterine cavity and was used to scrape the uterine palmer until a gritty texture was noted. At this time, the suction curette was advanced one more time to suction any remaining products of conception and blood. Instruments were removed from the vagina. Hemostasis was noted. Patient was awaken from anesthesia without difficulty. Products of conception will be sent to pathology. She was transported to recovery room in stable condition. Patient will be discharged home when awake and ambulating. She was also given instructions to follow-up in the office in 2 weeks. Condition: stable Disposition: same day Specimens:: 1. Products of conception Complications:: None
--- NOTE | 2023-11-12 13:38 | EXP.ANES.I ---
[facility] Anesthesia Record Part I Anesthesia Record I Intake, IV Amount: 1,200 Hydration: Adequate Estimated blood loss (mL): 100 Urine output (mL): 0 Blood Pressure: 118/60 SaO2: 99 Pulse Rate: 92 Airway Patency: Patent Respiratory Rate: 12 Temperature: 97.4 F Patient is:: Awake and Stable Stable to PACU at:: 13:30
--- NOTE | 2023-11-12 13:48 | P.DS_ITS ---
General Admission date:: 11/12/23 Discharge date: 11/12/23 HPI HPI HPI: Mrs Celeste Costa is a 28 yo . On 11/01/23, she got out of the shower and started bleeding. She passed some large clots in the toilet and bleeding and cramping resolved. She felt good throughout the day on Tuesday. She woke up Tuesday at 0300 in a puddle of blood. She states she couldn't leave her bathroom from [phone] because she was soaking a pad every 3-5 minutes. She admits she never experienced lightheadedness/dizziness, shortness of breath or chest pain. She went to the ED 11/02/23. B leeding had started to slow when she got to the ED. Vital signs stable. Hgb 13.5, Beta hcg quant 10,046 from 22,711. Bleeding persisted over the past week and a half. She admits to having to change her pad about twice per day. She was feeling tired but otherwise okay. However, this morning she woke up and passed a large clot and then began bleeding heavy again. She is soaking through an adult diaper in about 20 minutes. She is feeling lightheaded and dizzy now. No chest pain or shortness breath. Beta hcg quant 11/11/23 was 2,320 down from 10,046. Hospital Course Hospital Course Hospital Course: Mrs Celeste Costa is a 28 yo . On 11/01/23, she got out of the shower and started bleeding. She passed some large clots in the toilet and bleeding and cramping resolved. She felt good throughout the day on Tuesday. She woke up Tuesday morning at 0300 in a puddle of blood. She states she couldn't leave her bathroom from [phone] because she was soaking a pad every 3-5 minutes. She admits she never experienced lightheadedness/dizziness, shortness of breath or chest pain. She went to the ED 11/02/23. Bleeding had started to slow when she got to the ED. Vital signs stable. Hgb 13.5, Beta hcg quant 10,046 from 22,711. Bleeding persisted over the past week and a half. She admits to having to change her pad about twice per day. She was feeling tired but otherwise okay. However, this morning she woke up and passed a large clot and then began bleeding heavy again. She is soaking through an adult diaper in about 20 minutes. She is feeling lightheaded and dizzy now. No chest pain or shortness breath. Beta hcg quant 11/11/23 was 2,320 down from 10,046. She underwent suction D&C on 11/12/23. She was given Venofer 200 mg IV x 1 dose. She did well postoperatively and was discharged home on POD # 0. She was given instructions to follow-up in the office in 2 weeks or sooner if needed. Exam Data for Last 24 hours Vital signs and Labs for Last 24 Hours: Temp Pulse Resp BP 97.4 F L 92 H 12 118/60 11/12/23 13:40 11/12/23 13:40 11/12/23 13:40 11/12/23 13:40 Laboratory Results - last 24 hr 11/12/23 11:41: POC Glucose 91 11/12/23 11:57: WBC 8.8, RBC 4.32, Hgb 13.3, Hct 40.6, MCV 94.1, MCH 30.9, MCHC 32.8, RDW 12.9, Plt Count 276, MPV 7.5, Neut % (Auto) 60.1, Lymph % (Auto) 30.6, [place] % (Auto) 6.0, Eos % (Auto) 2.5, Baso % (Auto) 0.6, Neut # (Auto) 5.3, Lymph # (Auto) 2.7, [place] # (Auto) 0.5, Eos # (Auto) 0.2, Baso # (Auto) 0.1, HCG, Quant 1868 H, Crossmatch (AHG) See Detail I & O for Last 24 hours: Intake & Output 11/09/23 11/10/23 11/11/23 11/12/23 23:59 23:59 23:59 23:59 Intake Total 1200 / 1200 Balance 1200 / 1200 Weight 108 lb Constitutional Constitutional: no acute distress and cooperative *Routine HEENT Exam Head: Present normocephalic and atraumatic Eye: Absent conjunctivae pink ENT: Present mucous membranes moist *Routine Neck Exam Neck: Present full ROM *Routine Respiratory Exam Respiratory: Present CTA bilaterally and normal respiratory effort *Routine Cardiovascular Exam Cardiovascular: Present RRR *Routine Abdominal Exam Abdominal: Present soft; Absent tenderness or distended *Routine Rectal Exam Patient deferred: visual exam *Routine Exam Patient deferred: external exam *Routine Extremities Exam Extremities: Present full ROM; Absent edema or calf tenderness *Routine Neurological Exam Neurological: Present alert, moving all extremities and normal speech Routine Psychiatric Exam Psychiatric: Present normal affect and cooperative Results Data Completed and Pending Labs on day of discharge: Labs from last 24 hours 11/12/23 11/12/23 11:57 11:41 WBC 8.8 RBC 4.32 Hgb 13.3 Hct 40.6 MCV 94.1 MCH 30.9 MCHC 32.8 RDW 12.9 Plt Count 276 MPV 7.5 Neut % (Auto) 60.1 Lymph % (Auto) 30.6 [place] % (Auto) 6.0 Eos % (Auto) 2.5 Baso % (Auto) 0.6 Neut # (Auto) 5.3 Lymph # (Auto) 2.7 [place] # (Auto) 0.5 Eos # (Auto) 0.2 Baso # (Auto) 0.1 POC Glucose 91 HCG, Quant 1868 H Blood Type Pending Antibody Screen Pending Crossmatch ([facility]) See Detail DS: Diagnosis Discharge Diagnosis (1) Incomplete : Status: Acute Code(s): O03.4 - Incomplete spontaneous without complication (2) Hemorrhage: Status: Acute Code(s): R58 - Hemorrhage, not elsewhere classified (3) History of recurrent miscarriages: Status: Acute Code(s): N96 - Recurrent loss Problem details: x 2 (4) Rh(D) positive: Status: Acute Code(s): Z67.90 - Unspecified blood type, Rh positive Meds Home Medications and Allergies Home Medications Medication Instructions Recorded Confirmed Type sertraline 50 mg tablet (Zoloft) 50 mg PO DAILY Depression 08/18/21 10/27/23 History omeprazole 20 mg capsule,delayed 20 mg PO DAILY 12/07/21 10/27/23 History release vits no.126-ferrous fum 1 tab PO DAILY 10/14/23 10/27/23 History 28 mg iron-folic acid 800 mcg tablet (Classic ) loratadine 10 mg tablet (Claritin) 10 mg PO DAILY PRN ALLERGIES 11/03/23 11/03/23 History New Prescriptions to Start Prescriptions: Allergies Allergy/AdvReac Type Severity Reaction Status Date / Time No Known Allergies Allergy Verified 11/03/23 10:26 Discharge Plan Disposition Patient Disposition: Home, Self-Care Condition: Good Follow up Plan Follow up with: Monica Courtney DO [Staff Physician] - 2 weeks Prescriptions/Medication Reconciliation: Continued sertraline [Zoloft] 50 mg tablet 50 mg PO DAILY loratadine [Claritin] 10 mg tablet 10 mg PO DAILY PRN (Reason: ALLERGIES) omeprazole 20 mg capsule,delayed release(DR/EC) 20 mg PO DAILY Classic 28 mg iron- 800 mcg tablet 1 tab PO DAILY Problem Reconciliation Problems Reviewed?: Yes Patient Discharge Instructions DIET: continue same diet and regular diet Additional Instructions: Discharge: 1. Take 800 mg Ibuprofen every 8 hours as needed for pain. You can also take 500-1000 mg of Tylenol in between doses, every 6-8 hours. 2. Nothing in the vagina for 2 weeks - no intercourse, douching or tampons. No tub baths/hot tubs or swimming pools 3. Reasons to return to L&D or call On-Call doctor - fever (greater than 100.4) - heavy vaginal bleeding (soaking through 1 pad in less than 2 hours) - vaginal discharge (malodorous and/or purulent) Monica Courtney DO [facility] [phone] Providers Primary Care Provider: Jade Arce Admit Provider: Monica Courtney Attending Provider: Monica Courtney
[2023-11-12] MEDS: IRON SUCROSE COMPLEX 200 MG in 0.9 % SODIUM CHLORIDE 100 ML 220 MG IV (14:19)
--- NOTE | 2023-11-12 14:42 | PC.NURSE ---
1250- Nando Grajeda CRNA at he bedside speaking with pt 1255- Pt off the unit per bed and surgery staff to the OR
--- NOTE | 2023-11-12 14:55 | PC.NURSE ---
Pt assisted x1 to the bathroom, Pt was able to void a large amount, small amounts of blood noted in the toilet. Pt tolerated well, Pt given pad and mesh panties, and assisted back to bed
--- NOTE | 2023-11-12 15:16 | PC.NURSE ---
Pt is resting comfortably in the bed eating lunch tray at this time, Pt voices no pain or needs at this time
--- NOTE | 2023-11-12 16:10 | PC.NURSE ---
IV removed and D/C teaching provided
--- NOTE | 2023-11-14 10:34 | P.PNANES_ITS ---
[facility] Anesthesia Record Part II Anesthesia Record Part II Discharge Time: 14:00 Destination: located within [facility] PACU nurse assessment reviewed?: Yes Patient Condition:: Good Anesthesia Complications:: None Swallowing reflex intact?: Yes Airway Patency: Patent Cyanosis?: No Blood Pressure: 90/73 SaO2: 95 Respiratory Rate: 12 Pulse Rate: 66 Temperature: 97.5 F Mental Status: Alert & Oriented Pain level:: 0 Nausea and/or vomitting:: None Intake, IV Amount: 1,000 Hydration: Adequate
[2023-11-14 10:36] VITALS: BP 90/73; PULSE 66; RESP 12; TEMP 36.4; O2SAT 95
== END 2023-11-12 16:20 | disposition home or self-care (01) ==
LOC: OBOUT 11:40 → OB 11:40
PROVIDERS: Admitting Provider Obstetrics & Gynecology; PCP Physician Assistant; Visit Provider Obstetrics & Gynecology
PROC: (CPT 58120; principal; 2023-11-12 12:30)
DX: O03.4 Incomplete spontaneous abortion without complication (principal)
CPT/HCPCS: 59812; 82962; 84702; 85025; 86850; G0378; J1756; J2405

== ENCOUNTER → 2023-11-27 11:35 | Outpatient (CLI) | payer BC, OTHER, SELFPAY ==
[2023-11-27 13:01] LABS: Thyroid Stimulating Hormone 0.88 uIU/mL (0.465-4.68)
[2023-11-28 13:09] LABS: Anti-Cardio Antibody IgM <9 MPL U/mL (0-12); Anti-Cardiolipin Antibody IgG <9 GPL U/mL (0-14); Anticardiolipin Ab,IgA,Qn <9 APL U/mL (0-11)
[2023-11-29 12:40] LABS: von Willebrand Factor (vWF) Ag 62 % (50-200)
[2023-11-29 19:20] LABS: Beta-2 Glycoprotein I Ab, IgG <9 (0-20)
[2023-11-30 06:42] LABS: Beta-2 Glycoprotein I Ab, IgM <9 (0-32)
== END ==
LOC: LAB 11:37 → OBOUT 11:39
PROVIDERS: PCP Physician Assistant; Visit Provider Obstetrics & Gynecology
DX: N96 Recurrent pregnancy loss (principal)
CPT/HCPCS: 81241; 84443; 85245; 86146; 86147

== ENCOUNTER 2024-01-02 16:34 | Outpatient (CLI) | payer BC, OTHER, SELFPAY ==
[2024-01-02 17:52] LABS: HCG,Quantitative 15 mIU/ml (0-5.42)
[2024-01-03 08:56] LABS: Progesterone 13.4 ng/mL (.)
== END 2024-01-02 23:59 ==
LOC: LAB 16:34
PROVIDERS: PCP Physician Assistant; Visit Provider Obstetrics & Gynecology
DX: N92.6 Irregular menstruation, unspecified (principal)
CPT/HCPCS: 84144; 84702

== ENCOUNTER 2024-01-04 14:10 | Outpatient (CLI) | payer BC, OTHER, SELFPAY ==
[2024-01-04 15:21] LABS: HCG,Quantitative 7 mIU/ml (0-5.42)
== END 2024-01-04 23:59 ==
LOC: LAB 14:10
PROVIDERS: PCP Physician Assistant; Visit Provider Obstetrics & Gynecology
DX: N96 Recurrent pregnancy loss (principal)
CPT/HCPCS: 36415; 84702

== ENCOUNTER 2024-02-03 15:40 | Outpatient (CLI) | payer BC, OTHER, SELFPAY ==
[2024-02-03 16:59] LABS: HCG,Quantitative 117 mIU/ml (0-5.42)
== END 2024-02-03 23:59 ==
PROVIDERS: PCP Physician Assistant; Visit Provider Obstetrics & Gynecology Reproductive Endocrinology
DX: O02.81 Inappropriate change in quantitative human chorionic gonadotropin (hCG) in early pregnancy (principal)
CPT/HCPCS: 36415; 84702

== ENCOUNTER 2024-02-06 10:00 | Outpatient (CLI) | payer BC, OTHER, SELFPAY ==
[2024-02-06 11:13] LABS: HCG,Quantitative 446 mIU/ml (0-5.42)
[2024-02-06 11:28] LABS: Thyroid Stimulating Hormone 1.09 uIU/mL (0.465-4.68)
[2024-02-06 13:15] LABS: Free T4 (Free Thyroxine) 0.92 ng/dl (0.78-2.19)
[2024-02-07 08:33] LABS: Progesterone 18.3 ng/mL (.)
== END 2024-02-06 23:59 | disposition home or self-care (01) ==
LOC: LAB 10:00
PROVIDERS: PCP Physician Assistant; Visit Provider Obstetrics & Gynecology Reproductive Endocrinology
DX: Z32.01 Encounter for pregnancy test, result positive (principal)
CPT/HCPCS: 36415; 84144; 84439; 84443; 84702

== ENCOUNTER 2024-02-08 08:31 | Outpatient (CLI) | payer BC, OTHER, SELFPAY ==
[2024-02-08 10:54] LABS: HCG,Quantitative 1247 mIU/ml (0-5.42)
== END 2024-02-08 23:59 | disposition home or self-care (01) ==
LOC: LAB 08:31
PROVIDERS: PCP Physician Assistant; Visit Provider Obstetrics & Gynecology Reproductive Endocrinology
DX: Z32.01 Encounter for pregnancy test, result positive (principal)
CPT/HCPCS: 36415; 84702

== ENCOUNTER 2024-03-29 09:58 | Outpatient (CLI) | payer BC, OTHER, SELFPAY ==
[2024-03-29 10:34] LABS: Basophils # 0.1 K/mm3 (0-0.2); Basophils % 0.8 % (0.1-2.0); Eosinophils # 0.1 K/mm3 (0.0-0.4); Eosinophils % 1.1 % (0.1-12.0); Hematocrit 40.6 % (37.0-47.0); Hemoglobin 13.3 g/dL (12.2-16.2); Lymphocytes # 1.9 K/mm3 (0.7-4.5); Lymphocytes % 20.6 % (10-50); Mean Corpuscular HGB Conc 32.7 g/dL (31.8-35.4); Mean Corpuscular Hemoglobin 29.7 pg (27.0-31.2); Mean Corpuscular Volume 91.1 fl (81-99); Mean Platelet Volume 7.7 fl (7.4-10.4); Monocytes # 0.5 K/mm3 (0.1-1.0); Monocytes % 5.7 % (1.7-9.3); Neutrophils # 6.7 K/mm3 (1.8-7.8); Neutrophils % 71.8 % (37.0-80.0); Platelet Count 270 K/mm3 (142-424); Red Blood Count 4.46 M/mm3 (4.20-5.40); Red Cell Distribution Width 15.6 % (11.5-17.5); White Blood Count 9.3 K/mm3 (4.8-10.8)
[2024-03-29 11:28] LABS: HIV (1&2) Antibody Rapid NON REACTIVE
[2024-03-30 06:14] LABS: HCV Ab Non Reactive (Non Reactive); Hepatitis B Surface Antigen Negative (Negative); Rubella Antibodies, IgG 1.21 index (Immune >0.99)
[2024-03-30 11:29] LABS: Rapid Plasma Reagin Ab Titer Non Reactive titer (NonRea<1:1)
== END 2024-03-29 23:59 | disposition home or self-care (01) ==
LOC: LAB 10:00
PROVIDERS: PCP Physician Assistant; Visit Provider Obstetrics & Gynecology
DX: Z34.92 Encounter for supervision of normal pregnancy, unspecified, second trimester (principal); Z3A.12 12 weeks gestation of pregnancy; N96 Recurrent pregnancy loss
CPT/HCPCS: 36415; 85025; 86593; 86762; 86850; 87340

== ENCOUNTER 2024-04-04 16:28 | Outpatient (CLI) | payer BC, OTHER, SELFPAY ==
[2024-04-07 06:47] LABS: Neisseria gonorrhoeae, NAA Negative (Negative)
== END 2024-04-04 23:59 | disposition home or self-care (01) ==
LOC: LAB.DROPOF 16:28
PROVIDERS: PCP Obstetrics & Gynecology; Visit Provider Obstetrics & Gynecology
DX: Z34.92 Encounter for supervision of normal pregnancy, unspecified, second trimester (principal); Z3A.12 12 weeks gestation of pregnancy
CPT/HCPCS: 87086; 87491; 87591

== ENCOUNTER 2024-05-24 07:23 | Outpatient (CLI) | payer BC, OTHER, SELFPAY ==
--- NOTE | 2024-05-24 07:23 | US_ITS ---
PROCEDURE: US OB /MATERNAL DETAIL CLINICAL INDICATION: 20 week anatomy scan COMPARISON: US US OB <= 14 WEEKS FETUS from 10/27/2023 FINDINGS: Transabdominal sonographic images of the pelvis were obtained. From her established due date she is 19 weeks 6 days.. Single viable intrauterine gestation. Breech position. Placenta: Anteriorplacenta grade 1. There are multiple placental lakes. There is an average amount of fluid. The cervix appears satisfactory. Closed and measuring 4.1 cm TV in length. Complete survey performed and was unremarkable on the submitted images as in PACS. No discrete anomalies identified on survey imaging by technologist. Active fetus. Three-vessel cord with satisfactory umbilical cord insertion. 4- chamber heart noted. Situs, aortic arch, LVOT, RVOT, three-vessel view appear normal. Survey of brain & ventricles Unremarkable. Cerebellum, thalamus, choroid plexus, cisterna magna appear normal. Face and neck survey unremarkable. Profile, nasion, lips and nose appeared normal. Diaphragm and chest views unremarkable. Abdomen: Both kidneys noted and unremarkable. There is bilateral mild renal pelvis dilation with left measuring 3.4mm. Stomach and bladder noted and satisfactory. Spine: Survey of the spine satisfactory with no anomalies identified nor imaged. Cervical, thoracic, lower spine appear normal. Both arms and legs noted. Amniotic Fluid: Adequate. MVP 4.32 cm. Measurements: Average ultrasound age 19weeks 5days. Estimated due date by ultrasound age 1210/13/2024. Estimated weight 297g BPD = 20weeks 0 days HC = 19weeks 2days AC = 19weeks 6days FL = 19weeks 3days Growth Percentile= 28 Heart Rate = 143bpm Cerebellum = 19weeks 0 days Humerus = 20weeks 2days HC/AC is 1.14 FL/BPD is 0.66 FL/AC is 0.21 IMPRESSION: 1. Viable fetus in the breech presentation with an anterior placenta grade 1. There are multiple placental lakes. 2. The fluid is within normal limits with an MVP 4.32 cm. 3. Anatomical scan appears normal. 4. There is mild bilateral renal pelvis dilation with the left side measuring 3.4 mm. 5. Suggest follow-up ultrasound at 28 weeks to look at the renal pelvis and placental lakes. Dictated by: Juancarlos Acevedo MD 05/24/2024 17:16 Juancarlos Acevedo MD in [facility] 05/24/2024 17:16
== END 2024-05-24 23:59 | disposition home or self-care (01) ==
LOC: RAD 07:23
PROVIDERS: PCP Physician Assistant; Visit Provider Obstetrics & Gynecology
DX: Z36.89 Encounter for other specified antenatal screening (principal); Z3A.19 19 weeks gestation of pregnancy
CPT/HCPCS: 76811

== ENCOUNTER 2024-07-13 08:08 | Outpatient (CLI) | payer BC, OTHER, SELFPAY ==
[2024-07-13 08:28] LABS: Basophils # 0.1 K/mm3 (0-0.2); Basophils % 0.6 % (0.1-2.0); Eosinophils # 0.1 K/mm3 (0.0-0.4); Eosinophils % 1.5 % (0.1-12.0); Hematocrit 37.2 % (37.0-47.0); Hemoglobin 12.2 g/dL (12.2-16.2); Lymphocytes # 1.7 K/mm3 (0.7-4.5); Lymphocytes % 17.3 % (10-50); Mean Corpuscular HGB Conc 32.8 g/dL (31.8-35.4); Mean Corpuscular Hemoglobin 31.8 pg (27.0-31.2); Mean Corpuscular Volume 96.9 fl (81-99); Mean Platelet Volume 8.4 fl (7.4-10.4); Monocytes # 0.7 K/mm3 (0.1-1.0); Monocytes % 7.1 % (1.7-9.3); Neutrophils # 7.1 K/mm3 (1.8-7.8); Neutrophils % 73.6 % (37.0-80.0); Platelet Count 286 K/mm3 (142-424); Red Blood Count 3.84 M/mm3 (4.20-5.40); Red Cell Distribution Width 13.4 % (11.5-17.5); White Blood Count 9.6 K/mm3 (4.8-10.8)
[2024-07-13 08:41] LABS: Glucose,Fasting 96 mg/dl (74-100)
[2024-07-13 09:54] LABS: Glucose 1 Hour 102 mg/dL (74-100)
[2024-07-14 10:11] LABS: Rapid Plasma Reagin Ab Titer Non Reactive titer (NonRea<1:1)
== END 2024-07-13 23:59 | disposition home or self-care (01) ==
LOC: LAB 08:09
PROVIDERS: PCP Physician Assistant; Visit Provider Obstetrics & Gynecology
DX: Z34.90 Encounter for supervision of normal pregnancy, unspecified, unspecified trimester (principal)
CPT/HCPCS: 36415; 82951; 85025; 86593

== ENCOUNTER 2024-07-20 07:57 | Outpatient (CLI) | payer BC, OTHER, SELFPAY ==
--- NOTE | 2024-07-20 07:57 | US_ITS ---
PROCEDURE: US OB FOLLOW UP CLINICAL INDICATION: Lt. renal pelvis dilation COMPARISON: Ultrasound 05/24/2024 FINDINGS: Transabdominal sonographic images of the pelvis were obtained. The following parameters are obtained: From her established due date she is 28weeks 0 days Viable fetus in the cephalic presentation with an anterior placenta grade 1. There is a placental espinal still present measuring 1.9 cm. The cervix measures 4.0 cm heart rate: 133bpm bpm. weight 1095 grams, 2 lb 7 oz. BPD: 27weeks 6days, 32 percentile HC: 27weeks 4days, 11 percentile AC: 27weeks 5days, 32 percentile FL: 27weeks 3days, 19 percentile HC/AC: 1.09 FL/BPD: 0.74 FL/AC: 0.22 Growth percentile: 23 Amniotic fluid index: 11.39cm, MVP 4.24 cm. No obvious anomalies evident. profile seen, stomach, bladder, kidneys, three-vessel cord, four chamber heart appear normal. There is minimal non concerning bilateral renal pelvis dilation measuring 2.7 mm and 3.0 mm. IMPRESSION: 1. Viable fetus in the cephalic presentation with an anterior placenta grade 1. 2. There continues to be a placental espinal measuring 1.9 cm. 3. The fluid is within normal limits with an amniotic fluid index of 11.39 cm, MVP 4.24 cm. 4. Anatomical scan appears normal. 5. There is minimal, non concerning bilateral renal pelvis dilation measuring 2.7 mm and 3.0 mm. 6. There has been good interval growth with the fetus currently 23rd percentile. Dictated by: Juancarlos Acevedo MD 07/21/2024 06:53 Juancarlos Acevedo MD in [facility] 07/21/2024 06:53
== END 2024-07-20 23:59 | disposition home or self-care (01) ==
LOC: RAD 07:57
PROVIDERS: PCP Physician Assistant; Visit Provider Obstetrics & Gynecology
DX: O99.891 Other specified diseases and conditions complicating pregnancy (principal); N28.89 Other specified disorders of kidney and ureter; Z3A.28 28 weeks gestation of pregnancy
CPT/HCPCS: 76816

== ENCOUNTER 2024-08-17 07:55 | Outpatient (CLI) | payer BC, OTHER, SELFPAY ==
--- NOTE | 2024-08-17 07:56 | US_ITS ---
PROCEDURE: US OB BIOPHYSICAL PROFILE CLINICAL INDICATION: SGA COMPARISON: US US OB /MATERNAL DETAIL from 05/24/2024 US US OB FOLLOW UP from 07/20/2024 FINDINGS: Transabdominal sonographic images of the uterus were obtained. From her established due date she is 32weeks 0 days. The following parameters are obtained: Viable Fetus in the cephalic presentation with an anterior placenta grade 2. A placental [place] is seen in the inferior placenta. Average ultrasound age is 31weeks 6days Estimated weight 1,768g The cervix measures 3.94 cm. Measurements: heart Rate = 142bpm BPD = 32weeks 0 days, 39 percentile HC = 32weeks 4days, 24 percentile AC = 31weeks 4days, 32 percentile FL = 31weeks 0 days, 14 percentile HC/AC is 1.07 FL/BPD is 0.75 FL/AC is 0.22 23 percentile Amniotic fluid index: 12.83cm, MVP 3.55 cm Qualitative AFV:2 Breathing movements: 2 Gross Body Movements: 2 Tone: 2 Biophysical profile score: 8 Doppler evaluation of the umbilical artery: SD ratio: 2.66-2.72 Resistive index: 0.63 No obvious anomalies evident.Kidneys, profile, stomach, bladder, four-chamber heart, three-vessel cord appear normal. There appears to be a small ventricular septal defect within the heart. There is mild bilateral renal pelvis dilation measuring 4.1 mm and 3.5 mm. IMPRESSION: 1. Viable fetus in the cephalic presentation with an anterior placenta grade 2. A placental [place] is noted. 2. The fluid is within normal limits with amniotic fluid index 12.83 cm, MVP 3.55 cm. 3. Biophysical profile is 8/8 with good breathing movement and movement seen. 4. SD ratio is normal 2.66-2.72. 5. There has been good interval growth with the fetus currently 23rd percentile. 6. There continues to be mild bilateral renal pelvis dilation. 7. A VENTRICULOSEPTAL DEFECT IS SEEN AND SUGGEST A MATERNAL MEDICINE CONSULT. 8. The rest of the limited anatomical scan appears normal. 9. Dr. Courtney was notified of the VSD. Dictated by: Juancarlos Acevedo MD 08/17/2024 09:41 Juancarlos Acevedo MD in [facility] 08/17/2024 09:41
== END 2024-08-17 23:59 | disposition home or self-care (01) ==
LOC: RAD 07:56
PROVIDERS: PCP Physician Assistant; Visit Provider Obstetrics & Gynecology
DX: Z3A.32 32 weeks gestation of pregnancy; Z67.90 Unspecified blood type, Rh positive; N96 Recurrent pregnancy loss; O36.5930 Maternal care for other known or suspected poor fetal growth, third trimester, not applicable or unspecified
CPT/HCPCS: 76816; 76819; 76820

== ENCOUNTER 2024-09-11 15:21 | Outpatient (CLI) | payer BC, OTHER, SELFPAY ==
[2024-09-11 15:39] VITALS: BP 134/82; PULSE 90; RESP 18; TEMP 36.9; O2SAT 100; BMI 20.5
[2024-09-11 15:53] VITALS: BMI 20.5
[2024-09-11 16:06] LABS: Microscopic, Urine URINE MICROSCOPIC (MICROSCOPIC)
[2024-09-11 16:09] LABS: Appearance,Urine CLEAR (Clear); Bilirubin,Urine Negative (Negative); Blood, Urine Negative (Negative); Color,Urine YELLOW (Yellow); Glucose,Urine (UA) 2+ (Negative); Ketones,Urine TRACE (Negative); Leukocyte Esterase,Urine 1+ (Negative); Nitrate,Urine Negative (Negative); PH,Urine 6.5 (5.0-8.5); Protein,Urine Negative (Negative); Specific Gravity, Urine 1.025 (1.005-1.030); Urobilinogen,Urine 0.2 EU/dl (0.2)
[2024-09-11 16:20] LABS: Bacteria,Urine 4+ /lpf; Benzodiazepines Screen,Urine Negative ng/ml (<200); Squamous Epithelial Cell,Urine 20-50 #/hpf (0-5); WBC,Urine 50-100 #/hpf (0-3)
[2024-09-11 16:21] LABS: Amphetamine/Metha Screen,Urine Negative ng/ml (<1000); Barbiturates Screen,Urine Negative ng/ml (<200)
[2024-09-11 16:22] LABS: Cannabinoid Screen,Urine Negative ng/ml (<50)
[2024-09-11 16:23] LABS: Cocaine Screen,Urine Negative ng/ml (<300); Methadone Screen,Urine Negative ng/ml (<300)
[2024-09-11 16:24] LABS: Opiate Screen,Urine Negative ng/ml (<300)
[2024-09-11 16:25] LABS: Phencyclidine Screen,Urine Negative ng/ml (<25)
[2024-09-11] MEDS: LACTATED RINGERS 1000ML 1,000 ML 999 ML IV (17:15)
[2024-09-11] MEDS: TERBUTALINE SULFATE 1MG/ML VIAL 0.25 MG SUBCUT (18:16)
== END 2024-09-11 19:32 | disposition home or self-care (01) ==
LOC: OBOUT 15:23 → OB 15:23
PROVIDERS: Obstetrics & Gynecology; PCP Physician Assistant; Visit Provider Obstetrics & Gynecology
DX: O60.03 Preterm labor without delivery, third trimester (principal); Z3A.35 35 weeks gestation of pregnancy
CPT/HCPCS: 80307; 81001; 87086; G0463; J3105; J7120

== ENCOUNTER 2024-09-19 14:58 | Outpatient (CLI) | payer BC, OTHER, SELFPAY ==
[2024-09-19 15:10] VITALS: BMI 20.8
[2024-09-19 15:27] LABS: Microscopic, Urine URINE MICROSCOPIC (MICROSCOPIC)
[2024-09-19 15:30] LABS: Appearance,Urine CLEAR (Clear); Bilirubin,Urine Negative (Negative); Blood, Urine Negative (Negative); Color,Urine YELLOW (Yellow); Glucose,Urine (UA) Negative (Negative); Ketones,Urine Negative (Negative); Leukocyte Esterase,Urine TRACE (Negative); Nitrate,Urine Negative (Negative); Protein,Urine Negative (Negative); Urobilinogen,Urine 0.2 EU/dl (0.2)
[2024-09-19 15:40] LABS: Fetal Membrane Rupture (Rapid) Negative (Negative)
[2024-09-19 15:41] LABS: Barbiturates Screen,Urine Negative ng/ml (<200)
[2024-09-19 15:42] LABS: Amphetamine/Metha Screen,Urine Negative ng/ml (<1000); Benzodiazepines Screen,Urine Negative ng/ml (<200)
[2024-09-19 15:43] LABS: Cannabinoid Screen,Urine Negative ng/ml (<50)
[2024-09-19 15:44] LABS: Cocaine Screen,Urine Negative ng/ml (<300); Methadone Screen,Urine Negative ng/ml (<300)
[2024-09-19 15:45] VITALS: BP 121/72; PULSE 92; RESP 18; TEMP 36.6; O2SAT 98; BMI 20.8
[2024-09-19 15:45] LABS: Opiate Screen,Urine Negative ng/ml (<300)
[2024-09-19 15:46] LABS: Phencyclidine Screen,Urine Negative ng/ml (<25)
[2024-09-19 15:50] LABS: Bacteria,Urine 2+ /lpf; Squamous Epithelial Cell,Urine 20-50 #/hpf (0-5); Yeast,Urine 1+ /lpf
== END 2024-09-19 16:11 | disposition home or self-care (01) ==
LOC: OBOUT 15:00 → OB 15:00
PROVIDERS: PCP Physician Assistant; Visit Provider Obstetrics & Gynecology
DX: O42.913 Preterm premature rupture of membranes, unspecified as to length of time between rupture and onset of labor, third trimester (principal); Z3A.36 36 weeks gestation of pregnancy
CPT/HCPCS: 80307; 81001; 84112; 87086; G0463

== ENCOUNTER 2024-09-21 16:00 | Outpatient (CLI) | payer BC, OTHER, SELFPAY | END 2024-09-21 23:59 | disposition home or self-care (01) | LOC: LAB.DROPOF 16:00 | PROVIDERS: PCP Obstetrics & Gynecology; Visit Provider Obstetrics & Gynecology | DX: Z36.89 Encounter for other specified antenatal screening (principal) | CPT/HCPCS: 86403 ==

== ENCOUNTER 2024-09-26 11:06 | Outpatient (CLI) | payer BC, OTHER, SELFPAY ==
[2024-09-26 11:14] VITALS: BMI 21.2
[2024-09-26 11:26] LABS: Microscopic, Urine URINE MICROSCOPIC (MICROSCOPIC)
[2024-09-26 11:30] LABS: Appearance,Urine CLEAR (Clear); Bilirubin,Urine Negative (Negative); Blood, Urine Negative (Negative); Color,Urine YELLOW (Yellow); Glucose,Urine (UA) Negative (Negative); Ketones,Urine Negative (Negative); Leukocyte Esterase,Urine Negative (Negative); Nitrate,Urine Negative (Negative); PH,Urine 5.5 (5.0-8.5); Protein,Urine Negative (Negative); Specific Gravity, Urine 1.015 (1.005-1.030); Urobilinogen,Urine 0.2 EU/dl (0.2)
[2024-09-26 11:43] LABS: Barbiturates Screen,Urine Negative ng/ml (<200)
[2024-09-26 11:44] LABS: Amphetamine/Metha Screen,Urine Negative ng/ml (<1000); Benzodiazepines Screen,Urine Negative ng/ml (<200)
[2024-09-26 11:45] LABS: Methadone Screen,Urine Negative ng/ml (<300)
[2024-09-26 11:46] VITALS: BP 135/81; PULSE 80; RESP 17; TEMP 36.7; O2SAT 100; BMI 21.2
[2024-09-26 11:46] LABS: Cannabinoid Screen,Urine Negative ng/ml (<50); Cocaine Screen,Urine Negative ng/ml (<300)
[2024-09-26 11:47] LABS: Opiate Screen,Urine Negative ng/ml (<300)
[2024-09-26 11:48] LABS: Phencyclidine Screen,Urine Negative ng/ml (<25)
[2024-09-26 11:49] LABS: Bacteria,Urine 1+ /lpf; WBC,Urine Occasional #/hpf (0-3)
== END 2024-09-26 12:05 | disposition home or self-care (01) ==
LOC: OBOUT 11:08 → OB 11:09
PROVIDERS: PCP Physician Assistant; Visit Provider Obstetrics & Gynecology
DX: O60.03 Preterm labor without delivery, third trimester (principal); Z3A.37 37 weeks gestation of pregnancy
CPT/HCPCS: 80307; 81001; G0463

== ENCOUNTER 2024-10-02 18:22 | Outpatient (CLI) | payer BC, OTHER, SELFPAY ==
[2024-10-02 18:30] VITALS: BP 144/79; PULSE 86; RESP 16; TEMP 36.6; BMI 21.2; BMI 21.4
--- NOTE | 2024-10-02 18:32 | US_ITS ---
PROCEDURE INFORMATION: Exam: US , Limited Exam date and time: 10/02/2024 6:49 PM Clinical indication: Other: Dec movement; ; Additional info: Decreased fm TECHNIQUE: Imaging protocol: Real-time ultrasound of the maternal uterus with image documentation. Exam focused on the clinical indication. COMPARISON: No relevant prior studies available. FINDINGS: Gestation: Single intrauterine gestation. heart rate: 136 bpm presentation and position: Cephalic. Placenta: Anterior location. No retroplacental hemorrhage. Amniotic fluid index: 9.31 cm. ANATOMY: heart four-chamber view, heart size and position: Known small ventricular septal defect. kidneys: Mildly increased dilation of the left renal pelvis measuring 0.49 cm (previously 0.41 cm). IMPRESSION: 1. Single live intrauterine gestation. 2. Known small ventricular septal defect. 3. Mildly increased dilation of the left renal pelvis measuring 0.49 cm (previously 0.41 cm). PROCEDURE INFORMATION: Exam: US Biophysical Profile Without Non-Stress Test Exam date and time: 10/02/2024 6:49 PM Age: 29 years old Clinical indication: Other: Dec movement; ; Additional info: Decreased fm TECHNIQUE: Imaging protocol: US biophysical profile without non-stress testing. COMPARISON: US OB BIOPHYSICAL PROFILE 08/17/2024 8:03 AM FINDINGS: BIOPHYSICAL PROFILE: breathing (BPP): 2 out of 2. gross body movement (BPP): 2 out of 2. tone (BPP): 2 out of 2. Amniotic fluid (BPP): 2 out of 2. IMPRESSION: Normal biophysical profile scoring 8/8.
[2024-10-02 18:48] LABS: Microscopic, Urine URINE MICROSCOPIC (MICROSCOPIC)
[2024-10-02 18:49] LABS: Appearance,Urine CLEAR (Clear); Bilirubin,Urine Negative (Negative); Blood, Urine TRACE-I (Negative); Color,Urine YELLOW (Yellow); Glucose,Urine (UA) Negative (Negative); Ketones,Urine Negative (Negative); Leukocyte Esterase,Urine 2+ (Negative); Nitrate,Urine Negative (Negative); Protein,Urine Negative (Negative); Specific Gravity, Urine 1.015 (1.005-1.030); Urobilinogen,Urine 0.2 EU/dl (0.2)
[2024-10-02 19:03] LABS: Amphetamine/Metha Screen,Urine Negative ng/ml (<1000)
[2024-10-02 19:04] LABS: Barbiturates Screen,Urine Negative ng/ml (<200)
[2024-10-02 19:05] LABS: Benzodiazepines Screen,Urine Negative ng/ml (<200); Cannabinoid Screen,Urine Negative ng/ml (<50)
[2024-10-02 19:06] LABS: Cocaine Screen,Urine Negative ng/ml (<300)
[2024-10-02 19:07] LABS: Methadone Screen,Urine Negative ng/ml (<300); Phencyclidine Screen,Urine Negative ng/ml (<25)
[2024-10-02 19:08] LABS: Opiate Screen,Urine Negative ng/ml (<300)
[2024-10-02 19:10] LABS: WBC,Urine TNTC #/hpf (0-3)
[2024-10-02 19:11] LABS: Bacteria,Urine 4+ /lpf; Squamous Epithelial Cell,Urine TNTC #/hpf (0-5); Yeast,Urine 1+ /lpf
== END 2024-10-02 19:50 | disposition home or self-care (01) ==
LOC: OBOUT 18:24 → OB 18:25
PROVIDERS: PCP Physician Assistant; Visit Provider Obstetrics & Gynecology
DX: O36.8130 Decreased fetal movements, third trimester, not applicable or unspecified (principal); Z3A.38 38 weeks gestation of pregnancy
CPT/HCPCS: 76819; 80307; 81001; 87086; G0463

== ENCOUNTER 2024-10-04 20:50 | Inpatient (IN) | payer BC, OTHER, SELFPAY ==
[2024-10-04 21:08] VITALS: BMI 21.2
[2024-10-04 21:17] VITALS: BP 136/67; PULSE 86; RESP 18; TEMP 36.8; O2SAT 98; BMI 21.2
[2024-10-04 22:19] LABS: Hematocrit 32.2 % (37.0-47.0); Hemoglobin 10.3 g/dL (12.2-16.2); Mean Corpuscular Hemoglobin 25.9 pg (27.0-31.2); Mean Corpuscular Volume 81.1 fl (81-99); Red Blood Count 3.97 M/mm3 (4.20-5.40); White Blood Count 12.6 K/mm3 (4.8-10.8)
[2024-10-04 22:20] LABS: Basophils # 0.1 K/mm3 (0-0.2); Basophils % 0.5 % (0.1-2.0); Eosinophils # 0.2 K/mm3 (0.0-0.4); Eosinophils % 1.3 % (0.1-12.0); Lymphocytes # 2.4 K/mm3 (0.7-4.5); Lymphocytes % 18.8 % (10-50); Mean Platelet Volume 9.2 fl (7.4-10.4); Monocytes # 1.3 K/mm3 (0.1-1.0); Monocytes % 9.9 % (1.7-9.3); Neutrophils # 8.6 K/mm3 (1.8-7.8); Neutrophils % 68.5 % (37.0-80.0); Platelet Count 229 K/mm3 (142-424); Red Cell Distribution Width 13.1 % (11.5-17.5)
[2024-10-04 22:30] LABS: Benzodiazepines Screen,Urine Negative ng/ml (<200)
[2024-10-04 22:31] LABS: Amphetamine/Metha Screen,Urine Negative ng/ml (<1000)
[2024-10-04 22:32] LABS: Barbiturates Screen,Urine Negative ng/ml (<200); Cannabinoid Screen,Urine Negative ng/ml (<50)
[2024-10-04 22:33] LABS: Cocaine Screen,Urine Negative ng/ml (<300)
[2024-10-04 22:34] LABS: Methadone Screen,Urine Negative ng/ml (<300); Opiate Screen,Urine Negative ng/ml (<300)
[2024-10-04 22:35] LABS: Phencyclidine Screen,Urine Negative ng/ml (<25)
[2024-10-04] MEDS: MAGNESIUM OXIDE 400MG TABLET 400 MG PO (22:50)
[2024-10-04 23:29] LABS: Activated Partial Thrombo Time 25.1 seconds (22.8-30.6); INR 0.87 (0.9-1.1); Prothrombin Time 9.9 seconds (10.1-12.5)
[2024-10-05] MEDS: OXYTOCIN/RINGERS LACTATE 30 UNITS/500 ML BAG IV (00:44)
[2024-10-05] MEDS: DEXTROSE 5%-LACTATED RINGERS 1,000 ML 125 ML IV ×2 (00:44→08:29)
[2024-10-05 04:53] VITALS: BP 110/67; PULSE 86; RESP 16; TEMP 36.4; O2SAT 98
[2024-10-05] MEDS: LACTATED RINGERS 1000ML 1,000 ML 500 ML IV (08:12)
--- NOTE | 2024-10-05 08:55 | P.CONPHA_ITS ---
Pharmacy Intervention Comments: MEDICATION RECONCILIATION COMPLETED ON PATIENT USING EXTERNAL FILL HISTORY FROM PHARMACY AND LIST FROM [facility] OFFICE. -ISA DONGD
--- NOTE | 2024-10-05 08:55 | HMH.PHAINT1 ---
Pharmacy Intervention Comments: MEDICATION RECONCILIATION COMPLETED ON PATIENT USING EXTERNAL FILL HISTORY FROM PHARMACY AND LIST FROM [facility] OFFICE. -ISA DONGD
--- NOTE | 2024-10-05 08:59 | EXP.HP ---
History of Present Illness *Admission Date: 10/05/24 *Reason for visit:: Induction *History of present illness: Celeste is a very pleasant 29-year-old at 39 weeks and 0 days gestation who presented to labor and delivery for a scheduled elective induction but was noted to have with regular painful contractions. Her has been complicated by recurrent SAB and she has been on lovenox throughout her for this. On presentation patient endorsed good movement and denies any leakage of fluid or vaginal bleeding. O+, antibody negative, rubella immune, hepatitis B negative, hepatitis C negative, RPR negative, HIV negative 1 hour GTT: 102 GBS negative PFSH PFSH Disclaimer: The information contained in this section may have been updated after the patient was seen, as this information can be updated by other users. Medical History ventricular septal defect affecting antepartum care of mother Hemorrhage Rh(D) positive Incomplete Miscarriage History of recurrent miscarriages x 3 Missed URI (upper respiratory infection) Depression Hypoglycemia IBS (irritable bowel syndrome) Osteoarthritis Surgical History History of D&C Right wrist fracture Hernia, inguinal Family History Father Family history non-contributory Hypertension Hyperlipidemia Cancer, Onset Age: 60 brain cancer Social History (Updated 10/04/24 @ 23:00 by Shahnaz Stephen RN) Smoking Status: Never smoker alcohol intake: never substance use type: denies use current occupational status: employed Travel in the last 8 weeks: None housing: house marital status: number of children: 0 pets and animals: Yes caffeine: No Have you lived/traveled outside [place] in past 30 days?: No Contact w/someone who lives/traveled outside US past 30 days?: No Exposure to someone with infectious disease in past 14 days?: No Do you have a fever (greater than 100.4 F or 38 C)?: No Have you tested positive for COVID-19: No Exposed to someone with COVID-19 in past 14 days?: No Do you have a sore throat?: No Do you have a cough?: No Do you have any weakness?: No Are you experiencing any nausea/vomitting?: No Do you have any diarrhea?: No Are you experiencing any unusual bleeding?: No Do you have any muscle aches/pain?: No Do you have any abdominal pain?: No Are you experiencing loss of taste or smell?: No Other Medical History Have you received the Flu Vaccine for this season: No Have you received the Pneumonia Vaccine: No Review of Systems Review of Systems Review of systems (narrative): Review of Systems Constitutional: Denies fever, chills, and sweats Eyes: Denies vision change/ pain Respiratory: Denies cough and shortness of breath Cardiovascular: Denies chest pain and lightheadedness Gastrointestinal: Admits abdominal pain with contractions. Denies nausea, vomiting. Genitourinary: Denies dysuria and incontinence Musculoskeletal: Denies shoulder pain and back pain Neurological: Denies change in speech or headaches Meds Home Medications and Allergies Home Medications ?Medication ?Instructions ?Recorded ?Confirmed ?Type vits no.126-ferrous fum 1 tab PO DAILY 10/14/23 10/04/24 History 28 mg iron-folic acid 800 mcg tablet (Classic ) loratadine 10 mg tablet (Claritin) 10 mg PO DAILYP PRN ALLERGIES 11/03/23 10/05/24 History aspirin 81 mg tablet,delayed 81 mg PO DAILY 04/04/24 10/04/24 History release (Adult Aspirin Regimen) vit C 90 mg-D3 3.15 mcg-E 3.35 1 tab PO DAILY Immune support 07/27/24 10/04/24 History [id number] 65 mg chew tablet (Airborne Vits Zinc Elderberry) magnesium oxide 400 mg PO BID 09/17/24 10/04/24 History New Prescriptions to Start Prescriptions: Allergies Allergy/AdvReac Type Severity Reaction Status Date / Time No Known Allergies Allergy Verified 10/04/24 21:23 Exam Data for Last 24 hours Vital signs and Labs for Last 24 Hours: Temp Pulse Resp BP Pulse Ox O2 Del Method 97.6 F 86 16 110/67 98 Room Air 10/05/24 04:53 10/05/24 04:53 10/05/24 04:53 10/05/24 04:53 10/05/24 04:53 10/05/24 04:53 Laboratory Results - last 24 hr 10/04/24 21:50: WBC 12.6 H, RBC 3.97 L, Hgb 10.3 L, Hct 32.2 L, MCV 81.1, MCH 25.9 L, MCHC 32.0, RDW 13.1, Plt Count 229, MPV 9.2, Neut % (Auto) 68.5, Lymph % (Auto) 18.8, [place] % (Auto) 9.9 H, Eos % (Auto) 1.3, Baso % (Auto) 0.5, Neut # (Auto) 8.6 H, Lymph # (Auto) 2.4, [place] # (Auto) 1.3 H, Eos # (Auto) 0.2, Baso # (Auto) 0.1, Urine Opiates Screen Negative, Urine Methadone Screen Negative, Ur Barbituates Screen Negative, Ur Phencyclidine Scrn Negative, Ur Amphetamines Screen Negative, U Benzodiazepines Scrn Negative, Urine Cocaine Screen Negative, U Marijuana (THC) Screen Negative, Blood Type O Positive, Antibody Screen Negative, Crossmatch ([facility]) See Detail 10/04/24 22:42: PT 9.9 L, INR 0.87 L, APTT 25.1 I & O for Last 24 hours: Intake & Output 10/02/24 10/03/24 10/04/24 10/05/24 23:59 23:59 23:59 23:59 Weight 136 lb Narrative: General: patient is alert oriented in no acute distress and responds appropriately to questions. HEENT: NCAT, EOMI, moist mucous membranes, neck supple with full ROM Cardiovascular: RRR +S1/S2, no murmurs or rubs Pulmonary: Clear to auscultation bilaterally, nonlabored breathing, symmetric chest rise Abdominal: Gravid abdomen appropriate for gestation. No guarding, rebound, or tenderness noted. Extremities: trace edema, no tenderness or cyanosis noted Skin: Normal turgor, intact, warm. Negative for erythema, pallor, petechia, or lesions Neurologic: Negative for sensory or motor deficit Psychiatric: Normal affect, normal thought process, good judgment and insight, no depression or anxious mood appreciated. *Routine HEENT Exam Head: Present normocephalic and atraumatic Eye: Present EOMI, PERRL and normal accommodation; Absent conjunctival icterus, scleral injection, nystagmus or exophthalmos ENT: Present mucous membranes moist *Routine Respiratory Exam Respiratory: Present CTA bilaterally, normal respiratory effort, able to speak in complete sentences and symmetric chest movement; Absent accessory muscle use, decreased breath sounds, rales, respiratory distress, wheezes, distant breath sounds or diminished air movement *Routine Cardiovascular Exam Cardiovascular: Present RRR, Normal S1 and Normal S2; Absent murmur or gallop *Routine Abdominal Exam Abdominal: Present soft and normoactive bowel sounds; Absent tenderness, distended, rebound or guarding *Routine Rectal Exam Rectal:: deferred *Routine Genitalia Exam Genitalia:: normal female Assessment and Plan *Assessment and plan (1) History of recurrent miscarriages: Problem Comment: x 3 Status: Acute Category: Medical Code(s): N96 - Recurrent loss (2) Elective induction of labor planned: Status: Acute Category: Medical Plan - Monitor vitals - Admit to L&D for induction of labor - Plan for induction/augmentation of labor with AROM and pitocin, per protocol. - External FHR and TOCO monitor - Exam on admission: /-3 - GBS neg/ Blood type: O+ - Hemoglobin: 10.3, Plt: 229 - Plan for epidural anesthesia - Anticipate vaginal delivery of male : Anson López
--- NOTE | 2024-10-05 09:05 | P.PNANES_ITS ---
[facility] Disclaimer: The information contained in this section may have been updated after the patient was seen, as this information can be updated by other users. Medical History ventricular septal defect affecting antepartum care of mother Hemorrhage Rh(D) positive Incomplete Miscarriage History of recurrent miscarriages x 3 Missed URI (upper respiratory infection) Depression Hypoglycemia IBS (irritable bowel syndrome) Osteoarthritis Surgical History History of D&C Right wrist fracture Hernia, inguinal Family History Father Family history non-contributory Hypertension Hyperlipidemia Cancer, Onset Age: 60 brain cancer Social History (Updated 10/04/24 @ 23:00 by Shahnaz Stephen RN) Smoking Status: Never smoker alcohol intake: never substance use type: denies use current occupational status: employed Travel in the last 8 weeks: None housing: house marital status: number of children: 0 pets and animals: Yes caffeine: No Have you lived/traveled outside [place] in past 30 days?: No Contact w/someone who lives/traveled outside [place] past 30 days?: No Exposure to someone with infectious disease in past 14 days?: No Do you have a fever (greater than 100.4 F or 38 C)?: No Have you tested positive for COVID-19: No Exposed to someone with COVID-19 in past 14 days?: No Do you have a sore throat?: No Do you have a cough?: No Do you have any weakness?: No Are you experiencing any nausea/vomitting?: No Do you have any diarrhea?: No Are you experiencing any unusual bleeding?: No Do you have any muscle aches/pain?: No Do you have any abdominal pain?: No Are you experiencing loss of taste or smell?: No [facility] Anesthesia Checklist Patient Identification Patient Identification: Arm Band Structural Data Admitted From: Home Planned Operative Procedure/s: Labor Epidural Consent for Planned Operative Procedure(s) Verified: Yes Verified Documents: Surgical Consent and History and Physical NPO Status Verified Time NPO: 00:00 Additional verifications Anesthesia Reactions: No Hx Blood Transfusions: No Blood Transfusion Reaction: No Neurological Assessment Level of Consciousness: Awake, Alert and Appropriate Anesthesia Plan Anesthesia Risk discussed: Yes Anesthesia Plan: Verified ASA Class: II Anesthesia Type: Epidural
[2024-10-05] MEDS: OXYTOCIN/RINGERS LACTATE 30 UNITS/500 ML BAG 40 UNITS IV (11:21)
[2024-10-05 11:30] LABS: Cord Blood PH 7.27 (7.35-7.45)
[2024-10-05 11:30] LABS: Cord Blood PH 7.32 (7.35-7.45)
--- NOTE | 2024-10-05 12:36 | EXP.DN ---
Delivery Note Delivery Date:: 10/05/24 Delivery Time:: 11:16 Anesthesia Type: Epidural Was labor medically induced?: Yes Induction method: per pitocin protocol Gestational age (weeks): 39 delivered prior to 39 weeks?: No Infant Gender: Male Delivery Procedure:: Preoperative diagnosis: 1. at 39 completed this weeks gestation, vertex 2. Rh positive 3. GBS negative 4. Recurrent miscarriage, on lovenox throughout Postoperative diagnosis: 1. at 39 completed this weeks gestation, vertex 2. Rh positive 3. GBS positive EBL: 150mL Specimen: 1. Cord blood 2. Placenta Findings: 1. Liveborn viable male : Anson López. Apgars 8/9 at 1 and 5 minutes respectively. Weight [id number] 2. Midline episotomy without extension Complications: None Procedure: Non operative spontaneous vaginal delivery right Demetra Costa is a 29yo who presented to labor and delivery last night with painful contractions. She was montiored throughout the night and previously been scheduled for induction this morning at 39 weeks and 0 days gestation. She was noted to make progress to 4 cm at which time Pitocin was started for augmentation. She underwent artificial rupture of membranes this morning revealing clear fluid. She received an epidural for anesthesia. Patient quickly progressed to complete and +2 station. During pushing the patient was noted to be having decelerations with contractions. They were slower to recover to baseline. The Pitocin was halved from 14 to 7 and maternal oxygen was applied. With the next contraction and maternal expulsive effort the baby's heart rate went to the 60s and was not recovering as quickly. I counseled the patient and the only thing restricting delivery of the infant was the perineum and discussed the risks and benefits of an epistomy. Pt consented. A small midline episiotomy was made and delivery occurred with the next contraction. There was no extension of the episiotomy. With effective maternal pushing there was a nonoperative spontaneous vaginal delivery at 1116. There was no nuchal cord. The anterior right shoulder delivered, followed by the posterior shoulder without dystocia. The body and lower extremities delivered without difficulty. The infant was bulb suctioned and was crying immediately following delivery. The infant was placed on the maternal abdomen and greater than one minute was appreciated for delayed cord clamping. The umbilical cord was doubly clamped and cut. Cord blood was collected and sent for routine testing. The placenta delivered with cord traction and suprapubic contertraction. Pitocin was started and the placenta and cord were inspected. A true knot in the cord was suspected. The uterus was firm and bleeding was minimal. The perineum, vaginal palmer, cervix, and paraurethral area were inspected thoroughly. Episiotomy did not extend, and was repaired in the usual fashion using 2-0 and 3-0 Vicryl suture. The laceration was hemostatic. The cervix and vaginal palmer were inspected and noted to be hemostatic. This concluded the delivery. The patient was counseled regarding the events of the delivery and repair. The patient tolerated the delivery well. All counts were correct by nursing. Mother and were doing well and bonding upon my leaving the delivery room. Laceration:: vaginal Placental Delivery Description: Spontaneous
[2024-10-05] MEDS: ACETAMINOPHEN 500MG TAB 1000 MG PO ×2 (14:06→19:20)
[2024-10-05 15:38] VITALS: BP 126/80; PULSE 71; RESP 16; TEMP 36.4; O2SAT 100
[2024-10-05] MEDS: WITCH HAZEL 40 PADS/BOX 1 EACH TP (19:21)
[2024-10-05] MEDS: BENZOCAINE-MENTHOL SPRAY 56GM CAN TP (19:21)
[2024-10-05 21:05] VITALS: BP 119/69; PULSE 79; RESP 16; TEMP 36.7; O2SAT 98
[2024-10-05] MEDS: IBUPROFEN 400 MG TABLET 800 MG PO (21:54)
[2024-10-06] MEDS: ACETAMINOPHEN 500MG TAB 1000 MG PO ×2 (02:59→09:05)
[2024-10-06 04:13] VITALS: BP 115/68; PULSE 71; RESP 18; TEMP 36.7; O2SAT 97
[2024-10-06] MEDS: IBUPROFEN 400 MG TABLET 800 MG PO ×2 (05:53→13:22)
[2024-10-06] MEDS: BENZOCAINE-MENTHOL SPRAY 56GM CAN TP (05:56)
[2024-10-06 08:24] LABS: Hematocrit 32.5 % (37.0-47.0); Hemoglobin 10.2 g/dL (12.2-16.2)
--- NOTE | 2024-10-06 10:15 | EXP.ACUTE.PN ---
Subjective *Date: 10/06/24 *Time: 10:15 Interval history: She is 1 day post vaginal delivery and is doing very well. Her hemoglobin is normal. Her lochia is normal. She is breast-feeding. She denies any pain. Medical Exam Vital signs and Labs for Last 24 Hours: Vital Signs Temp Pulse Resp BP Pulse Ox O2 Del Method 10/06/24 04:13 98.0 F 71 18 115/68 97 Room Air 10/05/24 21:05 98.1 F 79 16 119/69 98 Room Air 10/05/24 15:38 97.6 F 71 16 126/80 100 Room Air Laboratory Results - last 24 hr 10/05/24 11:25: Cord ABG pH 7.27 L 10/05/24 11:26: Cord ABG pH 7.32 L 10/06/24 07:35: Hgb 10.2 L, Hct 32.5 L I & O for Labs for Last 24 Hours: Intake & Output 10/03/24 10/04/24 10/05/24 10/06/24 11:59 11:59 11:59 11:59 Weight 136 lb Head: Present normocephalic Neck: Present normal inspection Respiratory: Present normal respiratory effort; Absent accessory muscle use Assessment and Plan *Assessment and plan (1) ventricular septal defect affecting antepartum care of mother: Status: Acute Qualifiers: Fetus number: single or unspecified fetus Qualified Code(s): O35.BXX0 - Maternal care for other (suspected) abnormality and damage, cardiac anomalies, not applicable or unspecified Category: Medical Code(s): O35.BXX0 - Maternal care for other (suspected) abnormality and damage, cardiac anomalies, not applicable or unspecified (2) Rh(D) positive: Status: Acute Category: Medical Code(s): Z67.90 - Unspecified blood type, Rh positive (3) History of recurrent miscarriages: Problem Comment: x 3 Status: Acute Category: Medical Code(s): N96 - Recurrent loss (4) Normal delivery: Status: Acute Category: Medical Code(s): O80 - Encounter for full-term uncomplicated delivery Plan She is doing very well . We will plan to send her home tomorrow. She is breast-feeding.
--- NOTE | 2024-10-06 10:26 | EXP.DC.SUM ---
General Admission date:: 10/04/24 Discharge date: 10/06/24 HPI HPI HPI: Celeste is a very pleasant 29-year-old at 39 weeks and 0 days gestation who presented to labor and delivery for a scheduled elective induction but was noted to have with regular painful contractions. Her has been complicated by recurrent SAB and she has been on lovenox throughout her for this. On presentation patient endorsed good movement and denies any leakage of fluid or vaginal bleeding. O+, antibody negative, rubella immune, hepatitis B negative, hepatitis C negative, RPR negative, HIV negative 1 hour GTT: 102 GBS negative Hospital Course Hospital Course Hospital Course: She arrived in active labor at 39+ weeks gestational age and had her membranes ruptured. She progressed to full dilation and delivered spontaneously a liveborn male child at 11:16 AM on the morning of October 05, 2024. The baby weighed 6 pounds 10 ounces and was 18-1/2 inches long. He had Apgars of 8 at 1 minute and 9 at 5 minutes. She would like to be discharged home today and we will follow-up in a few days with the baby. The baby does have a small VSD. She will continue with her vitamins and iron. She is breast-feeding and doing well with this. She has O+ blood, she is rubella immune and was group B streptococcus negative. Her marketing teacher Dr. Jerome. She was given the usual instructions with respect to limiting her activity, driving and sexual activity. She will continue with her vitamins and iron. Her condition on discharge is stable and improved. Exam Data for Last 24 hours Vital signs and Labs for Last 24 Hours: Temp Pulse Resp BP Pulse Ox O2 Del Method 98.0 F 71 18 115/68 97 Room Air 10/06/24 04:13 10/06/24 04:13 10/06/24 04:13 10/06/24 04:13 10/06/24 04:13 10/06/24 04:13 Laboratory Results - last 24 hr 10/05/24 11:25: Cord ABG pH 7.27 L 10/05/24 11:26: Cord ABG pH 7.32 L 10/06/24 07:35: Hgb 10.2 L, Hct 32.5 L I & O for Last 24 hours: Intake & Output 12/1810/04/24 10/05/24 10/06/24 11:59 11:59 11:59 11:59 Weight 136 lb Constitutional Constitutional: no acute distress *Routine HEENT Exam Head: Present normocephalic *Routine Neck Exam Neck: Present full ROM *Routine Respiratory Exam Respiratory: Present normal respiratory effort; Absent accessory muscle use Results Data Completed and Pending Labs on day of discharge: Labs from last 24 hours 10/06/24 10/05/24 10/05/24 07:35 11:26 11:25 Hgb 10.2 L Hct 32.5 L Cord ABG pH 7.32 L 7.27 L DS: Diagnosis Discharge Diagnosis (1) ventricular septal defect affecting antepartum care of mother: Status: Acute Code(s): O35.BXX0 - Maternal care for other (suspected) abnormality and damage, cardiac anomalies, not applicable or unspecified Qualifiers: Fetus number: single or unspecified fetus Qualified Code(s): O35.BXX0 - Maternal care for other (suspected) abnormality and damage, cardiac anomalies, not applicable or unspecified (2) Rh(D) positive: Status: Acute Code(s): Z67.90 - Unspecified blood type, Rh positive (3) History of recurrent miscarriages: Status: Acute Code(s): N96 - Recurrent loss Problem details: x 3 (4) Normal delivery: Status: Acute Code(s): O80 - Encounter for full-term uncomplicated delivery Meds Home Medications and Allergies Home Medications ?Medication ?Instructions ?Recorded ?Confirmed ?Type vits no.126-ferrous fum 1 tab PO DAILY 10/14/23 10/04/24 History 28 mg iron-folic acid 800 mcg tablet (Classic ) loratadine 10 mg tablet (Claritin) 10 mg PO DAILYP PRN ALLERGIES 11/03/23 10/05/24 History vit C 90 mg-D3 3.15 mcg-E 3.35 1 tab PO DAILY Immune support 07/27/24 10/04/24 History [id number] 65 mg chew tablet (Airborne Vits Zinc Elderberry) magnesium oxide 400 mg PO BID 09/17/24 10/04/24 History New Prescriptions to Start Prescriptions: Allergies Allergy/AdvReac Type Severity Reaction Status Date / Time No Known Allergies Allergy Verified 10/04/24 21:23 Discharge Plan Disposition Patient Disposition: Home, Self-Care Discharge Order Discharge Orders: Discharge Order (Routine); Ordered 10/06/24 Ordered By: Juancarlos Acevedo Follow up Plan Follow up with: Monica Courtney DO [Staff Physician] - Enter time for follow up (Call the office on Tuesday to setup an appointment for 2 weeks from delivery.) Prescriptions/Medication Reconciliation: Continued loratadine [Claritin] 10 mg tablet 10 mg PO DAILYP PRN (Reason: ALLERGIES) Airborne Vits Zinc Elderberry 90 mg-3.15 mcg- 3.35 mg-65 mg tablet,chewable 1 tab PO DAILY magnesium oxide 400 mg magnesium tablet 400 mg PO BID Classic 28 mg iron- 800 mcg tablet 1 tab PO DAILY Discontinued aspirin [Adult Aspirin Regimen] 81 mg tablet,delayed release (DR/EC) 81 mg PO DAILY Problem Reconciliation Problems Reviewed?: Yes Patient Discharge Instructions ACTIVITY: No heavy lifting DIET: continue same diet Patient Instructions: Depression, Hemorrhage, DI for Labor and Delivery, Vaginal , DI for Pre-eclampsia, [facility] Post Discharge Instructions Print Language: Malagasy Providers Primary Care Provider: Jade Arce Admit Provider: Kadie Montilla Attending Provider: Kadie Montilla
[2024-10-07 02:24] LABS: RPR W/RFX Titers Nonreactive (Nonreactive)
== END 2024-10-06 14:45 | disposition home or self-care (01) | DRG 807 ==
PROVIDERS: Admitting Provider Obstetrics & Gynecology; PCP Physician Assistant; Visit Provider Obstetrics & Gynecology
DX: O80 Encounter for full-term uncomplicated delivery (principal); Z37.0 Single live birth; Z3A.39 39 weeks gestation of pregnancy
CPT/HCPCS: 59409; 36415; 59025; 80307; 82800; 85014; 85018; 85025; 85610; 85730; 86592; 86850; 94761; G0283; J3010; J7120

== ENCOUNTER 2024-10-24 14:10 | Outpatient (CLI) | payer BC, OTHER, SELFPAY ==
--- NOTE | 2024-10-24 14:11 | US_ITS ---
PROCEDURE: US PELVIC CLINICAL INDICATION: bleeding, 3 weeks COMPARISON: No exams were available for comparison FINDINGS: Transabdominal sonographic images of the pelvis were obtained. UTERUS: 9.3cm x 7.7 cmx 5.5cm retroverted with a combined endometrial thickness of 17.4mm. The endometrium appears thin at the fundus. LEFT OVARY: 3.1cmx1.5cmx2.0cm with a volume of 4.8ml. RIGHT OVARY: 3.7 cmx 2.2cmx2.4cm with a volume of 10.5ml. There are 2 small follicles in the right ovary. Both ovaries are seen and appear normal. Doppler flow to both ovaries are seen. There is no fluid in the cul-de-sac. IMPRESSION: 1. Retroverted uterus bulky in size consistent with her status. The endometrium at the fundus looks thin. There are no obvious retained products. 2. Both ovaries are seen and appear normal. 3. No fluid in the cul-de-sac. Dictated by: Juancarlos Acevedo MD 10/24/2024 16:39 Juancarlos Acevedo MD in [place] 10/24/2024 16:39
[2024-10-24 15:03] LABS: Basophils # 0.1 K/mm3 (0-0.2); Basophils % 0.8 % (0.1-2.0); Eosinophils # 0.3 K/mm3 (0.0-0.4); Hematocrit 40.8 % (37.0-47.0); Hemoglobin 12.6 g/dL (12.2-16.2); Lymphocytes # 2.4 K/mm3 (0.7-4.5); Lymphocytes % 27.9 % (10-50); Mean Corpuscular HGB Conc 30.9 g/dL (31.8-35.4); Mean Corpuscular Hemoglobin 26.4 pg (27.0-31.2); Mean Corpuscular Volume 85.5 fl (81-99); Mean Platelet Volume 9.2 fl (7.4-10.4); Monocytes # 0.7 K/mm3 (0.1-1.0); Monocytes % 7.9 % (1.7-9.3); Neutrophils # 5.1 K/mm3 (1.8-7.8); Neutrophils % 60.2 % (37.0-80.0); Platelet Count 348 K/mm3 (142-424); Red Blood Count 4.77 M/mm3 (4.20-5.40); White Blood Count 8.5 K/mm3 (4.8-10.8)
[2024-10-24 15:56] LABS: Thyroid Stimulating Hormone 0.41 uIU/mL (0.465-4.68)
== END 2024-10-24 23:59 | disposition home or self-care (01) ==
LOC: RAD 14:11
PROVIDERS: PCP Physician Assistant; Visit Provider Obstetrics & Gynecology
DX: O72.1 Other immediate postpartum hemorrhage (principal)
CPT/HCPCS: 36415; 76856; 84443; 85025

== ENCOUNTER 2024-10-29 14:41 | Outpatient (CLI) | payer BC, OTHER, SELFPAY ==
[2024-10-29 16:02] LABS: Triiodothryronine (T3) Uptake 30 % (23.5-40.5)
[2024-10-29 16:04] LABS: Free Thyroxine Index 2.7 ug/dL (5.93-13.13); T4 (Thyroxine) 8.9 ug/dl (5.53-11.0)
[2024-10-29 16:16] LABS: Thyroid Stimulating Hormone 0.54 uIU/mL (0.465-4.68)
[2024-10-29 16:17] LABS: Thyroid Stimulating Hormone 0.54 uIU/mL (0.465-4.68)
[2024-10-30 08:14] LABS: Prolactin 80.6 ng/mL (4.8-33.4); Thyroid Peroxidase Antibodies 12 IU/mL (0-34)
[2024-10-31 11:11] LABS: Anti-Thrombin III Antigen 93 % (72-124); Protein S Antigen, Total 76 % (60-150); Protein S, Free 90 % (61-136)
[2024-11-01 06:11] LABS: Protein C Antigen 106 % (60-150)
[2024-11-01 23:17] LABS: Anti Mullerian Hormone (AMH) 2.04 ng/mL (.)
[2024-11-05 08:20] LABS: Miscellaneous Test SCANNED IMAGE
[2024-11-15 19:15] LABS: APTT 27.1 sec (.); Anti-Cardiolipin Antibody IgG <10 GPL (.); Anti-Cardiolipin Antibody IgM <10 MPL (.); Beta-2 Glycoprotein I Ab, IgA <10 SAU (.); Beta-2 Glycoprotein I Ab, IgG <10 SGU (.); Beta-2 Glycoprotein I Ab, IgM <10 SMU (.); Hexagonal Phase Phospholipid 6 sec (.); Prothrombin Time 11.1 sec (.); Thrombin Time 19.7 sec (.)
== END 2024-10-29 23:59 | disposition home or self-care (01) ==
LOC: LAB 14:41
PROVIDERS: PCP Physician Assistant; Visit Provider Obstetrics & Gynecology
DX: R58 Hemorrhage, not elsewhere classified (principal); N96 Recurrent pregnancy loss
CPT/HCPCS: 81240; 82397; 84146; 84436; 84443; 84479; 85301; 85302; 85305; 85306; 85597; 85598; 85610; 85613; 85670; 85730; 86146; 86147; 86376